=== PATIENT | male | born 1950 | race Caucasian/White ===

== ENCOUNTER → 2022-05-11 15:10 | Outpatient (BNVA) | payer MEDICARE, SELFPAY | PROVIDERS: PCP Family Medicine; Visit Provider Hospitalist | DX: I26.99 Other pulmonary embolism without acute cor pulmonale (principal); J18.9 Pneumonia, unspecified organism; R91.8 Other nonspecific abnormal finding of lung field; R05.9 Cough, unspecified; Z79.01 Long term (current) use of anticoagulants | CPT/HCPCS: 99202 ==

== ENCOUNTER 2022-06-12 14:27 | Outpatient (REF) | payer MEDICARE, SELFPAY ==
--- NOTE | 2022-06-12 | PFT_ITS ---
Forced vital capacity 122, FEV1 134, and FEV1/FVC ratio is 79. YMV07-26 is 149% and MVV 96%. Post bronchodilator therapy, there is no change. Total lung capacity 105%. Residual volume 99%. Diffusion capacity 54%. CONCLUSION: Normal pulmonary function test, and there is no evidence of obstructive or restrictive pulmonary disorder. Diffusion capacity is moderately reduced, and this may be due to non-pulmonary factors for which clinical correlation is recommended. MD MINERVA Newell/MODL / [id number]
[2022-06-12 16:45] LABS: MANUAL DIFF FLAG NO
[2022-06-12 17:46] LABS: Basophils Percent Auto 0.3 % (0-2); Eosinophils Absolute Auto 0.1 X10*3/uL (0.0-0.4); Eosinophils Percent Auto 0.8 % (0-4); Hematocrit 45.2 % (42.0-52.0); Hemoglobin 15.2 g/dl (14.0-18.0); Imm Gran Abs Auto 0.03 X10*3/uL (0.00-0.03); Imm Gran Pct Auto 0.3 % (0.0-0.4); Lymphocytes Absolute Auto 3.1 X10*3/uL (1.2-4.9); Lymphocytes Percent Auto 34.6 % (20-40); Mean Corpuscular HGB Conc 33.6 g/dl (31.0-36.0); Mean Corpuscular Hemoglobin 28.4 pg (27.0-33.0); Mean Corpuscular Volume 84.3 fL (80.0-98.0); Mean Platelet Volume 8.9 fL (9.4-12.4); Monocytes Absolute Auto 0.8 X10*3/uL (0.1-1.2); Monocytes Percent Auto 8.6 % (2-11); Neutrophils Absolute Auto 4.9 x10*3/uL (2.0-8.3); Neutrophils Percent Auto 55.4 % (45-73); Platelet Count 272 X10*3/uL (160-400); Red Blood Count 5.36 X10*6/uL (4.60-5.80); Red Cell Distribution Width 13.3 % (11.0-16.0); White Blood Count 8.8 X10*3/uL (4.8-10.8)
[2022-06-12 18:19] LABS: Anion Gap 15 (12-20); Blood Urea Nitrogen 25 mg/dL (9-16); Calcium 9.6 mg/dL (8.4-10.2); Carbon Dioxide 20 mmol/L (22-29); Chloride 108 mmol/L (96-108); Estimated Glomerular Filt Rate > 60; Glucose Random 85 mg/dL (60-115); Sodium 139 mmol/L (135-145)
[2022-06-12 20:11] LABS: Erythrocyte Sedimentation Rate 1 MM/HR (0-15)
[2022-06-14 12:52] LABS: SARS COV2 IgG NEGATIVE
[2022-06-17 08:32] LABS: Myeloperoxidase Antibody <1.0 AI; Proteinase 3 PR3 Antibodies <1.0 AI
[2022-06-17 17:07] LABS: Anti Nuclear Antibody Screen NEGATIVE (NEGATIVE)
[2022-07-08 16:17] LABS: Asperg fumigatus Precip Abs NEGATIVE (NEGATIVE); Micropoly faeni Abs NEGATIVE (NEGATIVE); Pigeon serum Abs NEGATIVE (NEGATIVE); Saccharo pora viridis Abs NEGATIVE (NEGATIVE); Thermo candidus Abs NEGATIVE (NEGATIVE); Thermoa vulgaris #1 NEGATIVE (NEGATIVE)
== END 2022-06-12 14:28 | disposition home or self-care (01) ==
LOC: HO.RESP 14:27
PROVIDERS: PCP Family Medicine; Visit Provider Hospitalist
DX: J18.9 Pneumonia, unspecified organism (principal); J47.9 Bronchiectasis, uncomplicated; R05.9 Cough, unspecified; R91.8 Other nonspecific abnormal finding of lung field; Z20.822 Contact with and (suspected) exposure to COVID-19
CPT/HCPCS: 36415; 80048; 82785; 85025; 85652; 86003; 86021; 86038; 86039; 86331; 86606; 86609; 86769; 94060; 94727; 94729

== ENCOUNTER 2022-06-13 15:14 | Outpatient (REF) | payer MEDICARE, SELFPAY ==
--- NOTE | ~2022-06-13 | CT_ITS ---
EXAMINATION: CT ANGIOGRAM OF THE CHEST WITH AND WITHOUT CONTRAST (CT PULMONARY ANGIOGRAM FOR PE) CLINICAL INFORMATION: Reason for Exam I26.99 - Other pulmonary embolism without acute cor pulmonale COMPARISON: None TECHNIQUE: Prior to contrast administration, noncontrast localization images were obtained. Subsequently, multidetector volumetric imaging was performed from the thoracic inlet to below the diaphragms following the administration of 75 mL Omnipaque 350 intravenous contrast. No contrast reaction reported Sagittal, coronal, and MIP oblique sagittal reformatted images were obtained on the CT workstation, uploaded to PACS, and reviewed. This CT examination was performed using dose optimization techniques as appropriate, variously including the following: *Automated exposure control *Adjustment of mA and/or kV according to patient size (this includes techniques or standardized protocols for targeted exams where dose is matched to indication/reason for exam; i.e. extremities or head) *Use of iterative reconstruction technique Total exam dose-length product 231 mGy-cm FINDINGS: QUALITY OF STUDY/CONTRAST BOLUS: Satisfactory. PULMONARY ARTERIES: No central or segmental pulmonary emboli. THORACIC AORTA: No aneurysm or dissection. LUNG: There is peripheral scarring or subsegmental atelectasis, focal mild bronchiectasis and cystic change in the right upper lobe. There are clustered small peribronchial nodules or tree-in-bud appearance in the more inferior right upper lobe suggestive of disease. There is a branching tubular structure suggestive of bronchial soft tissue opacification or mucus plugging in the right middle lobe. This measures approximately 0 . 5 x 2 cm axial image 293 series 5. There is linear scarring or subsegmental atelectasis in the left lower lobe. PLEURA: No pleural effusion or pneumothorax. MEDIASTINUM: Normal heart size. Coronary artery calcification. No pericardial effusion. No hilar or mediastinal lymphadenopathy. No evidence of septal bowing or right heart strain. CHEST WALL/AXILLA: No axillary or internal mammary lymphadenopathy. OSSEOUS STRUCTURES: No acute or suspicious osseous abnormality. UPPER ABDOMEN: Multiple liver cysts, largest in the right lobe measuring 5 cm. The stomach is distended and filled with fluid. This may be related to patient having recently eaten. There is a 1 cm cyst in the upper pole of the left kidney. No reflux of contrast into the hepatic veins to suggest elevated right heart pressures. CT/CT angio chest PE protocol IMPRESSION: No evidence of pulmonary embolism. Focal peripheral or subpleural right upper lobe scarring or subsegmental atelectasis, bronchiectasis and cystic change. Evidence of mild airways disease with tree-in-bud nodules in the inferior right upper lobe. Irregular branching or tubular nodule in the right middle lobe probably representing bronchial soft tissue opacity splenic vein measuring 0.5 x [address] follow-up recommended .Mild coronary artery calcification. VTE: negative
[2022-06-13] MEDS: iohexoL 350 MG/ML 100 ML INFUS..BTL IV (16:07)
== END 2022-06-13 15:15 | disposition home or self-care (01) ==
LOC: HO.CT 15:14
PROVIDERS: PCP Family Medicine; Visit Provider Hospitalist
DX: J18.9 Pneumonia, unspecified organism (principal); R91.8 Other nonspecific abnormal finding of lung field; I26.99 Other pulmonary embolism without acute cor pulmonale
CPT/HCPCS: 71275; Q9967

== ENCOUNTER → 2022-06-29 15:43 | Outpatient (BNVA) | payer MEDICARE, SELFPAY | PROVIDERS: PCP Family Medicine; Visit Provider Hospitalist | DX: I26.99 Other pulmonary embolism without acute cor pulmonale (principal); J18.9 Pneumonia, unspecified organism; R91.8 Other nonspecific abnormal finding of lung field; J47.9 Bronchiectasis, uncomplicated; Z79.01 Long term (current) use of anticoagulants | CPT/HCPCS: 99212 ==

== ENCOUNTER → 2022-09-28 15:31 | Outpatient (BNVA) | payer MEDICARE, SELFPAY | PROVIDERS: PCP Family Medicine; Visit Provider Hospitalist | DX: I26.99 Other pulmonary embolism without acute cor pulmonale (principal); J18.9 Pneumonia, unspecified organism; J47.9 Bronchiectasis, uncomplicated; R05.9 Cough, unspecified; R91.8 Other nonspecific abnormal finding of lung field | CPT/HCPCS: 99212 ==

== ENCOUNTER → 2022-12-29 15:33 | Outpatient (BNVA) | payer MEDICARE, SELFPAY | PROVIDERS: PCP Family Medicine; Visit Provider Hospitalist | DX: J18.9 Pneumonia, unspecified organism (principal); J47.9 Bronchiectasis, uncomplicated; R91.8 Other nonspecific abnormal finding of lung field; R91.1 Solitary pulmonary nodule; R05.9 Cough, unspecified; I26.99 Other pulmonary embolism without acute cor pulmonale | CPT/HCPCS: 99212 ==

== ENCOUNTER → 2023-01-03 11:11 | Outpatient (BNVA) | payer MEDICARE, SELFPAY | PROVIDERS: PCP Family Medicine; Visit Provider Hospitalist | DX: Z13.89 Encounter for screening for other disorder (principal) ==

== ENCOUNTER 2023-08-10 16:36 | Outpatient (REF) | payer MEDICARE, SELFPAY ==
--- NOTE | ~2023-08-10 | CT_ITS ---
EXAMINATION: CT CHEST WITHOUT CONTRAST CLINICAL INFORMATION: Follow-up lung nodule. COMPARISON: CTA chest 06/13/2022. TECHNIQUE: Multidetector volumetric CT imaging of the chest was done. Axial MIP volume rendering provided. Sagittal and coronal reformatted images were obtained. This CT examination was performed using dose optimization techniques as appropriate, variously including the following: *Automated exposure control *Adjustment of mA and/or kV according to patient size (this includes techniques or standardized protocols for targeted exams where dose is matched to indication/reason for exam; i.e. extremities or head) *Use of iterative reconstruction technique DLP: 185 mGy-cm FINDINGS: LUNGS: Scarring in the anterolateral right upper lobe is stable. Tubular branching structure in the lateral right middle lobe consistent with mucus impacted airway is stable compared to prior. No new or suspicious enlarging nodule. MEDIASTINUM: No mediastinal adenopathy. CORONARY ARTERY CALCIFICATION: LM, LAD, LCx, RCA calcium PLEURA: There is no pleural effusion. No pleural mass or thickening. AXILLA: No lymphadenopathy. UPPER ABDOMEN: Hepatic cysts. Right upper pole renal cyst. No follow-up imaging is recommended. OSSEOUS STRUCTURES: Degenerative changes in the spine. CT/CT chest wo IV con IMPRESSION: Stable airway mucocele in the lateral middle lobe. Stable right apical pleural-parenchymal scarring. Fleischner guidelines were followed.
== END 2023-08-10 16:37 | disposition home or self-care (01) ==
LOC: HO.CT 16:36
PROVIDERS: Visit Provider Hospitalist
DX: R91.1 Solitary pulmonary nodule (principal)
CPT/HCPCS: 71250

== ENCOUNTER 2023-08-16 15:46 | Outpatient (AMB) | payer MEDICARE, SELFPAY ==
[2023-08-16 15:48] VITALS: PULSE 105; O2SAT 92; BMI 24.4
--- NOTE | 2023-08-16 15:48 | MHC.OFFVIS ---
Intake Vital Signs 08/16/23 15:48 Height 5 ft 5 in Weight 146 lb 9.718 oz BMI 24.4 Pulse 105 H Pulse Source Doppler Pulse Oximetry (%) 92 Oxygen Delivery Method Room Air Intake Visit Reasons: CT Scan Follow Up Allergies No Known Allergies Allergy (Verified 08/16/23 15:51) HPI HPI Comments History of Present Illness Details The patient is a 73-year-old gentleman with very complicated past medical history including lymphoma, colon cancer, prostate cancer skin cancer and now with a recent pulmonary embolism pneumonia. 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 It then transformed to a more aggressive lymphoma any required chemotherapy at [facility] in [place]. He tolerated a very aggressive cocktail on chemotherapy any did well. Unfortunately he had increased inguinal lymph node that was biopsy in suggest that he was some so residual lymphoma. I which point he was started on rituximab. He did have any significant improvement with rituximab in therefore his chemotherapy was discontinued. He still follows closely with Oncology. After that the patient was diagnosed colon cancer requiring resection and being monitored closely for his prostate and also some basal cell carcinoma of the skin. Apparently the patient was in usual state health when he fell and injured his chest area. Started complaining of some left-sided chest pain quickly after the fall and then migrated to the right side. He noticed increased shortness of breath. His neighbor was concerned and therefore the call the ambulance for him he was taken to [facility] for further evaluation. There he had a CT scan of the chest PE protocol which I reviewed with him demonstrating multiple pulmonary emboli including the right mainstem artery, right upper lobe left upper lobe and right lower lobe segments. No evidence of any heart strain that could be appreciated. although the CT scan also demonstrated airspace disease with areas of consolidations and also ground-glass opacities. Based on the reported sure this is in the same distribution to suggest that these are pulmonary infarcts. The patient was placed on Eliquis. He was also treated for sepsis and given antibiotics for the possible pneumonia. She was discharged around January 2022. For the last few months he continues to be short of breath. Explained to the patient that the clots were still present and slowly his body reason down further. He is not using oxygen and his ox pulse ox is 98%. The patient has been now more than 3 months from his episode of pulmonary emboli so therefore the plasma is begun. Will go ahead and perform a repeat CT scan to address the pulmonary emboli and also the parenchymal involvement. He does complaint of a hacky cough. He has been using Mucinex. Will try some Tessalon Perles. 07/03/2022 the patient is here for a pulmonary follow-up visit. Overall he is feeling a little better. The cough is better. He never use the Tessalon Perles because of concerns of adverse effects. He continues on the Eliquis. He did have a repeat CTA demonstrating resolution of the pulmonary emboli which is reassuring. It also demonstrated improvement of the basilar airspace disease. He still has areas of tree in bud in addition to bronchiectatic changes. Also appears to have a tubular opacification of an airway. Is not clear if he had this previously. There appears to be some component of airway disease. But at this point he is relatively stable without significant symptoms. Need to consider smoldering infection specially after using Rituxan which could potentially result in immunodeficiencies. Will request CT scans from [facility] in addition to [facility] in order to compare the airspace disease. We also did review his blood work which was reassuring without any evidence of any vasculitis or connective tissue diseases to explain his findings. The patient had negative COVID antibodies to suggest that this was not related to COVID. Patient also had been tested negative for COVID during the time of the pulmonary emboli in the airspace disease. The patient also underwent pulmonary function studies demonstrating no evidence of any obstructive nor restrictive ventilatory defects. However, patient did have a moderate tonight to severe isolated diffusion impairment. Therefore, need to consider underlying pulmonary vascular conditions Especially with his recent thromboembolic disease. Will continue to monitor his progress. 09/28/2022 the patient is here for a pulmonary follow-up visit. Overall he continues to do well. Denies any significant shortness of breath with activity. Mild in severity. He does have a cough. Typically is hard to expectorate. He uses guaifenesin a regular basis. This is partially helpful. the patient does have findings of bronchiectasis on previous CT scans. He has also had treating budding. We did review his CT scan from [address] scan from the spring and a CT scan from 2019. on his most recent CT scan he does have some residual scarring that was left over after having the significant pulmonary infarcts. No evidence of any blood clots on the CT scan in the patient did have what appeared to be elongated density in the right middle lobe area which appears to be somewhat of endobronchial process. We did look back to the CT scan the had initially diagnosed in him with the pulmonary emboli back in January which demonstrated the area but possibly little bit small and with. And we did look at the CAT scanning and from 2019 demonstrating that that density was not there. We talked about the importance of chest physical therapy. The patient does have bronchiectasis so therefore prior pride him with a nebulizer and provide with hypertonic saline and Acapella valve for chest PT and bronchopulmonary hygiene. I am hopeful that we can clear this area. In view of the interval increase in the nodular density the patient should have a repeat CT scan. Will request that during his next visit. The patient also is concerned about his cardiac status. He did have extensive pulmonary emboli with evidence of cardiac strain on the CT scan. Therefore will request an echocardiogram to assess his RV function. in regards of his anticoagulation he tolerates the Eliquis very well. No adverse effects. based on unprovoked event the patient should continue lifelong anticoagulation. ultimately if he decides not to continue with lifelong anticoagulation then I will recommend monitoring his D-dimer once he stops the therapy. However, with this history of lung cancer in his very severe thrombotic event I would believe that continuing the therapy would be the best option specially if he does not have any significant adverse effects. 12/29/2022 the patient is here for a pulmonary follow-up visit. The patient overall is doing well. He does have his nebulizer and Acapella valve although he has not been able to start using because he does not use it. Will make sure he has a nursing visit available in order for him to be instruction how to use it effectively. In the meantime the patient feels better overall. We did review his last CT scan of the chest from June 2022 demonstrating the abnormal nodular density. He did not have that in the past. Therefore will go ahead and repeat the CT scan in June of 2023 to make sure has not progressed in size. He does continue with the Eliquis. The Eliquis he is tolerating without any minor or major side effects. Therefore will continue it for now. He did have an unprovoked clot in does have a history of cancer so therefore lifelong anticoagulation we best. At some point we can also consider decreasing the medication to the prophylactic dose. Will discuss that further during the next visit. 08/16/2023 the patient is here for a pulmonary follow-up visit. Overall the patient has been doing well from a respiratory status. Denies any significant shortness of breath or chest pains or cough. Denies any hemoptysis. He has been tolerating the Eliquis 5 mg twice a day. The patient did have a repeat CT scan of the chest which was personally by me. I also reviewed with him the CT scan from 2018 in 2022. demonstrating significant improvement of the masslike densities that he had both in the right upper lobe and also the bilateral lung zones. He is left with remnants of scarring. He still has pulmonary nodules. Also has the mucocele in the right middle lobe area. This appears to be not changed. Overall his CT scan is reassuring. We again talked about considering a lower dose Eliquis now that he has been treated for his condition. Although he rather just continue taking the 5 mg twice a day since he is not having any adverse effects. Will continue discussing the topic. At this point with the improvement in his imaging studies we will hold off on the additional CT scans at this time. Will follow-up in 6 months in the meantime the patient does not have any running water. He is hopeful that he can get the water fixed in the coming weeks. Once he does he is going to start using his nebulizer again with hypertonic saline along with the Acapella valve for chest physical therapy. This will be very important for him to do in order for mucus clearing specially with the tree-in-bud changes the mucocele changes along with just healthy bronchopulmonary hygiene. The patient follow-up in 6 months and will continue to reassess his progress. [facility] Medical History (Updated 08/16/23 @ 22:39 by Keny Irizarry MD) Pulmonary nodule Bronchiectasis Colon cancer Prostate CA Pneumonia Social History Patient Tobacco Use Status: Former Tobacco user Tobacco use type: Cigarette Years Smoked: 25 Years Review of Systems Const Denies fever(s), Denies night sweats and Denies weight loss Eyes Reports no additional complaints ENT Denies change in voice Card Denies chest pain and Denies dyspnea on exertion Resp Reports cough, Denies dyspnea on exertion and Denies wheezing GI Reports no additional complaints Musc Reports no additional complaints Skin/Breast Denies rash Neuro Reports no additional complaints Aller/Immun Denies wheezing Physical Exam Vital Signs: Last Vital Signs Pulse 105 H 08/16/23 15:48 Pulse Ox 92 08/16/23 15:48 Oxygen Delivery Method Room Air 08/16/23 15:48 BMI result Body Mass Index 24.4 Const General: comfortable HEENT Head: Yes normal to inspection Eyes General: appearance normal, both eyes and all related structures Neck Neck: Yes supple Chest Chest palpation & inspection: normal inspection of the chest Resp Effort & Inspection: normal respiratory effort and able to speak in complete sentences Auscultation: clear to auscultation bilaterally Cardio Rate: regular rate Rhythm: regular rhythm Heart sounds: S1 normal heart sound present and S2 normal heart sound present Skin Rashes: rashes noted (likely insect bites on his right upper back area.) Extrem General: Yes no clubbing, cyanosis or edema Assessment & Plan Assessment & Plan (1) Pneumonitis: Comment: resolved Code(s): J18.9 - Pneumonia, unspecified organism (2) Lung mass: Comment: Resolved on repeat CT scan could have been related to a pulmonary infarct, now with residual scarring at the sites Code(s): R91.8 - Other nonspecific abnormal finding of lung field (3) Pulmonary emboli: Comment: unprovoked, life long antigoagulation Code(s): I26.99 - Other pulmonary embolism without acute cor pulmonale Qualifiers: Pulmonary embolism type: single subsegmental (without acute cor pulmonale) Qualified Code(s): I26.93 - Single subsegmental pulmonary embolism without acute cor pulmonale (4) Cough: Comment: better Code(s): R05.9 - Cough, unspecified Qualifiers: Cough type: chronic Qualified Code(s): R05.3 - Chronic cough (5) Bronchiectasis: Code(s): J47.9 - Bronchiectasis, uncomplicated Qualifiers: Bronchiectasis type: uncomplicated Qualified Code(s): J47.9 - Bronchiectasis, uncomplicated (6) Pulmonary nodule: Code(s): R91.1 - Solitary pulmonary nodule Plan continue Eliquis 5 mg twice a day. the patient had an unprovoked event with multiple pulmonary emboli. Patient would benefit from lifelong anticoagulation due to his likely high risk for recurrent episodes. Consider decreasing to 2.5mg BID nebulizer with the hypertonic saline and acapella valve for CPT, needs additional instructions follow-up in 6 months Coding Level of Care Code Est Pt Level 4 (57509) Diagnoses Pneumonitis J18.9 Lung mass R91.8 Single subsegmental pulmonary embolism without acute cor pulmonale I26.93 Pulmonary embolism type: single subsegmental (without acute cor pulmonale) Chronic cough R05.3 Cough type: chronic Bronchiectasis without complication J47.9 Bronchiectasis type: uncomplicated Pulmonary nodule R91.1 Time Spent (min) 20
== END 2023-08-16 16:22 | disposition home or self-care (01) ==
PROVIDERS: PCP Family Medicine; Visit Provider Hospitalist
DX: J18.9 Pneumonia, unspecified organism (principal); R91.8 Other nonspecific abnormal finding of lung field; I26.93 Single subsegmental thrombotic pulmonary embolism without acute cor pulmonale; R05.3 Chronic cough; J47.9 Bronchiectasis, uncomplicated; R91.1 Solitary pulmonary nodule
CPT/HCPCS: 99214

== ENCOUNTER → 2023-08-16 15:46 | Outpatient (BNVA) | payer MEDICARE, SELFPAY | PROVIDERS: PCP Family Medicine; Visit Provider Hospitalist | DX: J18.9 Pneumonia, unspecified organism (principal); I26.93 Single subsegmental thrombotic pulmonary embolism without acute cor pulmonale; J47.9 Bronchiectasis, uncomplicated; R05.3 Chronic cough; R91.1 Solitary pulmonary nodule; R91.8 Other nonspecific abnormal finding of lung field | CPT/HCPCS: 99212 ==

== ENCOUNTER 2024-05-29 14:55 | Outpatient (REF) | payer MEDICARE, SELFPAY ==
--- NOTE | ~2024-05-29 | XR_ITS ---
EXAMINATION: XR CHEST CLINICAL INFORMATION: Pneumonia, unspecified organism COMPARISON: Chest CT July 2023. TECHNIQUE: 2 views of the chest were obtained. Slight rotation to the right. FINDINGS: No new dominant airspace consolidation. Linear scarring change observed in the peripheral right upper lobe, appearing similar. No evidence for pneumothorax. Hilar regions and pulmonary vascularity appear unremarkable. There is small blunting in the right costophrenic angle which may reflect a minimal effusion or pleural reaction. Thoracic spondylitic changes observed. XR/XR chest 2V IMPRESSION: No dominant airspace infiltrates. Linear scarring of the right upper lobe, appearing similar to previous evaluation. Small blunting in the right costophrenic angle likely collecting a minimal effusion or pleural reaction.
== END 2024-05-29 14:56 | disposition home or self-care (01) ==
LOC: HO.XRAY 14:55
PROVIDERS: PCP Student in an Organized Health Care Education/Training Program; Visit Provider Hospitalist
DX: J18.9 Pneumonia, unspecified organism (principal)
CPT/HCPCS: 71046; 99212

== ENCOUNTER 2024-05-29 14:55 | Outpatient (AMB) | payer MEDICARE, SELFPAY ==
[2024-05-29 14:56] VITALS: BP 122/58; PULSE 105; O2SAT 95; BMI 23.8
--- NOTE | 2024-05-29 14:56 | A.OFFVIS_ITS ---
Vital Signs 05/29/24 14:56 Height 5 ft 5 in Weight 143 lb BMI 23.8 BP 122/58 L Blood Pressure Location Rt brachial Position Sitting Pulse 105 H Pulse Source Doppler Pulse Oximetry (%) 95 Oxygen Delivery Method Room Air Intake Visit Reasons: pulmonary embolism Allergies No Known Allergies Allergy (Verified 05/29/24 15:02) HPI Comments Details: The patient is a 74-year-old gentleman with very complicated past medical history including lymphoma, colon cancer, prostate cancer skin cancer and now with a recent pulmonary embolism pneumonia. 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 It then transformed to a more aggressive lymphoma any required chemotherapy at [facility] in [place]. He tolerated a very aggressive cocktail on chemotherapy any did well. Unfortunately he had increased inguinal lymph node that was biopsy in suggest that he was some so residual lymphoma. I which point he was started on rituximab. He did have any significant improvement with rituximab in therefore his chemotherapy was discontinued. He still follows cl osely with Oncology. After that the patient was diagnosed colon cancer requiring resection and being monitored closely for his prostate and also some basal cell carcinoma of the skin. Apparently the patient was in usual state health when he fell and injured his chest area. Started complaining of some left-sided chest pain quickly after the fall and then migrated to the right side. He noticed increased shortness of breath. His neighbor was concerned and therefore the call the ambulance for him he was taken to [facility] for further evaluation. There he had a CT scan of the chest PE protocol which I reviewed with him demonstrating multiple pulmonary emboli including the right mainstem artery, right upper lobe left upper lobe and right lower lobe segments. No evidence of any heart strain that could be appreciated. although the CT scan also demonstrated airspace disease with areas of consolidations and also ground-glass opacities. Based on the reported sure this is in the same distribution to suggest that these are pulmonary infarcts. The patient was placed on Eliquis. He was also treated for sepsis and given antibiotics for the possible pneumonia. She was discharged around January 2022. For the last few months he continues to be short of breath. Explained to the patient that the clots were still present and slowly his body reason down further. He is not us ing oxygen and his ox pulse ox is 98%. The patient has been now more than 3 months from his episode of pulmonary emboli so therefore the plasma is begun. Will go ahead and perform a repeat CT scan to address the pulmonary emboli and also the parenchymal involvement. He does complaint of a hacky cough. He has been using Mucinex. Will try some Tessalon Perles. 07/03/2022 the patient is here for a pulmonary follow-up visit. Overall he is feeling a little better. The cough is better. He never use the Tessalon Perles because of concerns of adverse effects. He continues on the Eliquis. He did have a repeat CTA demonstrating resolution of the pulmonary emboli which is reassuring. It also demonstrated improvement of the basilar airspace disease. He still has areas of tree in bud in addition to bronchiectatic changes. Also appears to have a tubular opacification of an airway. Is not clear if he had this previously. There appears to be some component of airway disease. But at this point he is relatively stable without significant symptoms. Need to consider smoldering infection specially after using Rituxan which could potentially result in immunodeficiencies. Will request CT scans from [facility] in addition to [facility] in order to compare the airspace disease. We also did review his blood work which was reassuring without any evidence of any vasculitis or connective tissue diseases to explain his findings. The patient had negative COVID antibodies to suggest that this was not related to COVID. Patient also had been tested negative for COVID during the time of the pulmonary emboli in the airspace disease. The patient also underwent pulmonary function studies demonstrating no evidence of any obstructive nor restrictive ventilatory defects. However, patient did have a moderate tonight to severe isolated diffusion impairment. Therefore, need to consider underlying pulmonary vascular conditions Especially with his recent thromboembolic disease. Will continue to monitor his progress. 09/28/2022 the patient is here for a pulmonary follow-up visit. Overall he continues to do well. Denies any significant shortness of breath with activity. Mild in severity. He does have a cough. Typically is hard to expectorate. He uses guaifenesin a regular basis. This is partially helpful. the patient does have findings of bronchiectasis on previous CT scans. He has also had treating budding. We did review his CT scan from [address] scan from the spring and a CT scan from 2019. on his most recent CT scan he does have some residual scarring that was left over after having the significant pulmonary infarcts. No evidence of any blood clots on the CT scan in the patient did have what appeared to be elongated density in the right middle lobe area which appears to be somewhat of endobronchial process. We did look back to the CT scan the had initially diagnosed in him with the pulmonary emboli back in January which demonstrated the area but possibly little bit small and with. And we did look at the CAT scanning and from 2019 demonstrating that that density was not there. We talked about the importance of chest physical therapy. The patient does have bronchiectasis so therefore prior pride him with a nebulizer and provide with hypertonic saline and Acapella valve for chest PT and bronchopulmonary hygiene. I am hopeful that we can clear this area. In view of the interval increase in the nodular density the patient should have a repeat CT scan. Will request that during his next visit. The patient also is concerned about his cardiac status. He did have extensive pulmonary emboli with evidence of cardiac strain on the CT scan. Therefore will request an echocardiogram to assess his RV function. in regards of his anticoagulation he tolerates the Eliquis very well. No adverse effects. based on unprovoked event the patient should continue lifelong anticoagulation. ultimately if he decides not to continue with lifelong anticoagulation then I will recommend monitoring his D- dimer once he stops the therapy. However, with this history of lung cancer in his very severe thrombotic event I would believe that continuing the therapy would be the best option specially if he does not have any significant adverse effects. 12/29/2022 the patient is here for a pulmonary follow-up visit. The patient overall is doing well. He does have his nebulizer and Acapella valve although he has not been able to start using because he does not use it. Will make sure he has a nursing visit available in order for him to be instruction how to use it effectively. In the meantime the patient feels better overall. We did review his last CT scan of the chest from June 2022 demonstrating the abnormal nodular density. He did not have that in the past. Therefore will go ahead and repeat the CT scan in June of 2023 to make sure has not progressed in size. He does continue with the Eliquis. The Eliquis he is tolerating without any minor or major side effects. Therefore will continue it for now. He did have an unprovoked clot in does have a history of cancer so therefore lifelong anticoagulation we best. At some point we can also consider decreasing the medication to the prophylactic dose. Will discuss that further during the next visit. 08/16/2023 the patient is here for a pulmonary follow-up visit. Overall the patient has been doing well from a respiratory status. Denies any significant shortness of breath or chest pains or cough. Denies any hemoptysis. He has been tolerating the Eliquis 5 mg twice a day. The patient did have a repeat CT scan of the chest which was personally by me. I also reviewed with him the CT scan from 2018 in 2022. demonstrating significant improvement of the masslike densities that he had both in the right upper lobe and also the bilateral lung zones. He is left with remnants of scarring. He still has pulmonary nodules. Also has the mucocele in the right middle lobe area. This appears to be not changed. Overall his CT scan is reassuring. We again talked about considering a lower dose Eliquis now that he has been treated for his condition. Although he rather just continue taking the 5 mg twice a day since he is not having any adverse effects. Will continue discussing the topic. At this point with the improvement in his imaging studies we will hold off on the additional CT scans at this time. Will follow-up in 6 months in the meantime the patient does not have any running water. He is hopeful that he can get the water fixed in the coming weeks. Once he does he is going to start using his nebulizer again with hypertonic saline along with the Acapella valve for chest physical therapy. This will be very important for him to do in order for mucus clearing specially with the tree-in-bud changes the mucocele changes along with just healthy bronchopulmonary hygiene. The patient follow-up in 6 months and will continue to reassess his progress. 05/29/2024 the patient is here for a pulmonary follow-up visit. The patient overall doing well from a respiratory status. He denies any shortness of breath or cough or chest pain. He denies any hemoptysis. He continues on the Eliquis 5 mg p.o. b.i.d.. He denies any minor major bleeding with the Eliquis. He is pretty happy with that dose. Although he knows that at this point he could sick way down to the lower dose of prophylactic dose of Eliquis 2.5 twice a day. The patient has last CT scan was back in 08/01/2023 which we personally reviewed together. He does have stable nodular densities. No evidence of any worsening disease. Therefore, the patient does not need any serial imaging studies from a CAT scan standpoint. However, on exam he does have some crackles at the left base. The scarring that we can appreciate on his CT scan is primarily on the right base. So therefore he is going to undergo a chest x-ray. His any worsening of disease we can consider additional imaging studies in the future. The patient is also working with a dentist. The patient needs to have a lot of dental work done. For now he is able to stop the Eliquis 3 days before and he can stop the Eliquis 2 days after the procedure. No bridge therapy warranted. The patient is also followed closely with Hematology Oncology. This is a right now he is stable. They will continue to monitor him closely [facility] Medical History (Updated 08/16/23 @ 22:39 by Keny Irizarry MD) Pulmonary nodule Bronchiectasis Colon cancer Prostate CA Pneumonia Social History Patient Tobacco Use Status: Former Tobacco user Tobacco use type: Cigarette Years Smoked: 25 Years Review of Systems Const Denies fever(s), Denies night sweats and Denies weight loss Eyes Reports no additional complaints ENT Denies change in voice Card Denies chest pain and Denies dyspnea on exertion Resp Reports cough, Denies dyspnea on exertion and Denies wheezing GI Reports no additional complaints Musc Reports no additional complaints Skin/Breast Denies rash Neuro Reports no additional complaints Aller/Immun Denies wheezing Physical Exam Vital Signs: Last Vital Signs Pulse 105 H 05/29/24 14:56 BP 122/58 L 05/29/24 14:56 Pulse Ox 95 05/29/24 14:56 Oxygen Delivery Method Room Air 05/29/24 14:56 BMI result Body Mass Index 23.8 Const General: comfortable HEENT Head: Yes normal to inspection Eyes General: appearance normal, both eyes and all related structures Neck Neck: Yes supple Chest Chest palpation & inspection: normal inspection of the chest Resp Effort & Inspection: normal respiratory effort and able to speak in complete sentences Auscultation: clear to auscultation bilaterally Cardio Rate: regular rate Rhythm: regular rhythm Heart sounds: S1 normal heart sound present and S2 normal heart sound present Skin Rashes: rashes noted (likely insect bites on his right upper back area.) Extrem General: Yes no clubbing, cyanosis or edema Assessment & Plan Assessment & Plan (1) Pneumonitis: Comment: resolved Code(s): J18.9 - Pneumonia, unspecified organism Category: Medical (2) Lung mass: Comment: Resolved on repeat CT scan could have been related to a pulmonary infarct, now with residual scarring at the sites Code(s): R91.8 - Other nonspecific abnormal finding of lung field Category: Medical (3) Pulmonary emboli: Comment: unprovoked, life long antigoagulation Code(s): I26.99 - Other pulmonary embolism without acute cor pulmonale Category: Medical Qualifiers: Pulmonary embolism type: single subsegmental (without acute cor p ulmonale) Qualified Code(s): I26.93 - Single subsegmental pulmonary embolism without acute cor pulmonale (4) Cough: Comment: better Code(s): R05.9 - Cough, unspecified Category: Medical Qualifiers: Cough type: chronic Qualified Code(s): R05.3 - Chronic cough (5) Bronchiectasis: Code(s): J47.9 - Bronchiectasis, uncomplicated Category: Medical Qualifiers: Bronchiectasis type: uncomplicated Qualified Code(s): J47.9 - Bronchiectasis, uncomplicated (6) Pulmonary nodule: Code(s): R91.1 - Solitary pulmonary nodule Category: Medical Plan continue Eliquis 5 mg twice a day. the patient had an unprovoked event with multiple pulmonary emboli. Patient would benefit from lifelong anticoagulation due to his likely high risk for recurrent episodes. Consider decreasing to 2.5mg BID CXR follow-up in 6-8 months Orders: Orders XR chest 2V Today J18.9 - Pneumonia, unspecified organism Coding Level of Care Code Est Pt Level 4 (54674) Diagnoses Pneumonitis J18.9 Lung mass R91.8 Single subsegmental pulmonary embolism without acute cor pulmonale I26.93 Pulmonary embolism type: single subsegmental (without acute cor pulmonale) Chronic cough R05.3 Cough type: chronic Bronchiectasis without complication J47.9 Bronchiectasis type: uncomplicated Pulmonary nodule R91.1 Time Spent (min) 18
== END 2024-05-29 15:24 | disposition home or self-care (01) ==
PROVIDERS: PCP Student in an Organized Health Care Education/Training Program; Visit Provider Hospitalist
DX: J18.9 Pneumonia, unspecified organism (principal); R91.8 Other nonspecific abnormal finding of lung field; I26.93 Single subsegmental thrombotic pulmonary embolism without acute cor pulmonale; R05.3 Chronic cough; J47.9 Bronchiectasis, uncomplicated; R91.1 Solitary pulmonary nodule
CPT/HCPCS: 99214

== ENCOUNTER 2024-07-13 19:58 | Inpatient (IN) | payer MEDICARE, SELFPAY ==
--- NOTE | ~2024-07-13 | CT_ITS ---
EXAMINATION: CT CHEST WITHOUT CONTRAST CLINICAL INFORMATION: Chest pain status-post fall. COMPARISON: Prior chest CT examinations, most recently 08/10/2023. TECHNIQUE: Multidetector volumetric CT imaging of the chest was done. Axial MIP volume rendering provided. Sagittal and coronal reformatted images were obtained. This CT examination was performed using dose optimization techniques as appropriate, variously including the following: *Automated exposure control *Adjustment of mA and/or kV according to patient size (this includes techniques or standardized protocols for targeted exams where dose is matched to indication/reason for exam; i.e. 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 There is plate-like scar/subsegmental atelectasis at the left base. LUNGS: There are multiple bilateral scattered benign, calcified granulomas. A few scattered 1-2 noncalcified nodules are seen within the right upper lobe laterally, best appreciated on the MIP sequence. Within the apicoposterior segment of the left upper lobe (26:92), a 3 mm noncalcified nodule is seen. These nodules are relatively stable from 06/13/2022, and they are considered benign. No new nodule, mass, infiltrate or groundglass opacity is seen. There is no generalized increase in peripheral interlobular septal markings. There is bibasilar linear scar/subsegmental atelectasis, without associated focal airway obstruction. There is further right apical pleural-parenchymal scarring, without focal airway obstruction. No generalized small airway thickening is seen. The central airways appear patent. MEDIASTINUM: The thyroid is unremarkable. There is no thoracic aortic aneurysm. There are mild atherosclerotic calcifications of the thoracic aorta. No mediastinal or hilar lymphadenopathy is seen. CORONARY ARTERY CALCIFICATION: Moderately severe. PLEURA: There is no pleural effusion. No pleural mass or thickening. AXILLA: No lymphadenopathy. There is asymmetric very mild left gynecomastia. UPPER ABDOMEN: There are multiple low-attenuation hepatic cysts, some too small to fully characterize with CT. Some of these within the right upper lobe appear lobulated and septated. There are incompletely covered bilateral renal cysts. The adrenal glands are unremarkable. OSSEOUS STRUCTURES: There is multi-level cervicothoracic spondylosis. No acute or aggressive osseous finding is noted. CT/CT chest wo IV con IMPRESSION: 1. There are benign, stable small noncalcified and calcified lung nodules, as detailed. Some of these within the right upper lobe show tree-in-bud arrangements, suggesting small airways or small vessels disease secondary to an infectious or inflammatory process. Please correlate clinically. 2. No new nodule, mass, infiltrate or groundglass opacity is seen. 3. There are scattered foci of scarring/subsegmental atelectasis, without associated focal airway obstruction. 4. No thoracic lymphadenopathy is seen. 5. There is moderately severe coronary artery atherosclerotic calcification. 6. There is multi-level cervicothoracic spondylosis Fleischner guidelines were followed. Electronically signed by: Jake Naylor MD 07/13/2024 10:53 PM EDT
--- NOTE | ~2024-07-13 | CT_ITS ---
EXAMINATION: CT CERVICAL SPINE WITHOUT CONTRAST CLINICAL INFORMATION: Pain status-post fall. COMPARISON: None available. TECHNIQUE: Without the addition of intravenous contrast, multiple contiguous multidetector transaxial sections are obtained through the cervical spine. Multiplanar reformatted images are submitted. This CT examination was performed using dose optimization techniques as appropriate, variously including the following: *Automated exposure control *Adjustment of mA and/or kV according to patient size (this includes techniques or standardized protocols for targeted exams where dose is matched to indication/reason for exam; i.e. extremities or head) *Use of iterative reconstruction technique DLP: 1480 mGy-cm FINDINGS: Vertebral body heights are normal. At C2-3, there is moderate disc space narrowing and a 2 mm anterolisthesis. There is marked degenerative disc disease extending from C3-4 through C6-7. At C7-T1, there is mild disc space narrowing and a 2 mm anterolisthesis. There is moderately severe disc space narrowing at T1-2 and T2-3, with a grade 1 anterolisthesis. There is moderate disc space narrowing at T3-4. No acute fracture or spondylolisthesis is seen. There is multi-level endplate and facet arthropathy. The dens is intact. No prevertebral soft tissue swelling is seen. The bilateral lung apices appear clear. There is mild right apical pleural and parenchymal scarring. CT/CT cervical spine wo IV con IMPRESSION: 1. No acute fracture or spondylolisthesis is seen. 2. There is multi-level cervical and upper thoracic degenerative disc disease, with endplate and facet arthropathy. Degenerative disc disease is most pronounced extending from C3-4 through C6-7, where it is severe. Fleischner guidelines were followed. Electronically signed by: Jake Naylor MD 07/13/2024 10:37 PM EDT Workstation: [id number]
--- NOTE | ~2024-07-13 | CT_ITS ---
EXAMINATION: CT HEAD WITHOUT CONTRAST CLINICAL INFORMATION: Pain status-post fall. COMPARISON: None available. TECHNIQUE: Contiguous axial imaging was performed from the skull base to vertex without intravenous administration of contrast. This CT examination was performed using dose optimization techniques as appropriate, variously including the following: *Automated exposure control *Adjustment of mA and/or kV according to patient size (this includes techniques or standardized protocols for targeted exams where dose is matched to indication/reason for exam; i.e. extremities or head) *Use of iterative reconstruction technique DLP: 800 mGy-cm FINDINGS: There is no acute intracranial hemorrhage or evidence of territorial infarction. No abnormal mass effect or midline shift is seen. Barone to white matter differentiation is well preserved. There is no abnormal attenuation within the brain parenchyma. The ventricles and sulci show proportional prominence, commensurate with advanced age. There is some asymmetry of the ventricles, which is likely congenital in etiology. No extra-axial fluid collections are identified. The calvarium and scalp soft tissues are normal. The middle ear cavity and mastoid air cells are clear. There is mild anterior ethmoid sinusitis. CT/CT head/brain wo IV con IMPRESSION: 1. No acute intracranial pathology. 2. There is mild ethmoid sinusitis. Electronically signed by: Jake Naylor MD 07/13/2024 10:32 PM EDT
--- NOTE | 2024-07-13 20:36 | ECG_ITS ---
Test Reason : FALL Blood Pressure : / mmHG Vent. Rate : 097 BPM Atrial Rate : 097 BPM P-R Int : 140 ms QRS Dur : 120 ms QT Int : 380 ms P-R-T Axes : 071 -75 038 degrees QTc Int : 482 ms Sinus rhythm with Premature atrial complexes Left axis deviation Right bundle branch block Abnormal ECG No previous ECGs available Referred By: Emely Wright Electronically Signed By:MISHA SHEPHERD
[2024-07-13 20:40] VITALS: BP 154/84; PULSE 112; RESP 20; TEMP 36.6; O2SAT 100; BMI 19.7
--- NOTE | 2024-07-13 20:45 | ED_ITS ---
HPI - General Adult General Chief complaint: Fall Stated complaint: ?FALL, FOUND FACE DOWN, L SIDE PAIN Time Seen by Provider: 07/13/24 20:44 Source: patient and EMS Mode of arrival: EMS Limitations: no limitations History of Present Illness ED Provider: Emely Wright PA-C HPI narrative: Patient is a 74 year old assigned male at with a history of colon cancer and prostate cancer presenting to the emergency department today with left sided rib pain after a fall and weakness. Patient states that on 07/11/2024 he had a fall and landed on his left side. Patient states that he didn't hit his head or have any loss of consciousness. Patient states that he got into his bed Sunday night and struggled to get out of it on Sunday so he laid there until he was found today. Patient states that he feels weak. Patient denies any dizziness, lightheadedness, abdominal pain, nausea, vomiting, fever, chills, blurry vision, double vision, loss of vision, chest pain, difficulty breathing, shortness of breath, back pain, night sweats, pain with urination, increased urinary frequency, increased urinary urgency, blood in his urine or stool, syncope or a near syncopal episode, bowel incontinence, bladder incontinence, or any other complaints at this time. Relieving factors: none Exacerbating factors: none Associated symptoms: weakness Treatments prior to arrival: none Related Data Home Medications ?Medication ?Instructions ?Recorded ?Confirmed apixaban 5 mg tablet (Eliquis) 5 mg PO Q12H 05/11/22 guaifenesin 600 mg tablet, 0 mg PO 05/11/22 extended release 12 hr (Mucus Relief ER) tadalafil 5 mg tablet 5 mg PO DAILY 05/11/22 Previous Rx's ?Medication ?Instructions ?Recorded sodium chloride 3 % for 4 ml inhalation BID 30 days #240 mL 09/28/22 nebulization sodium chloride 7 % for 4 ml inhalation BID 30 days #240 mL 10/13/22 nebulization Allergies Allergy/AdvReac Type Severity Reaction Status Date / Time No Known Allergies Allergy Verified 07/13/24 20:45 Review of Systems 2 Constitutional: Constitutional: Reports no additional constitutional complaints, Denies chills, Denies fever(s) and Denies night sweats Eyes: Eyes: Reports no additional eye complaints, Denies blurry vision, Denies change in vision, Denies diplopia, Denies eye discharge, Denies loss of vision and Denies eye pain ENT: Denies dizziness Cardiovascular: Cardiovascular: Reports no additional cardiovascular complaints, Denies chest pain, Denies lightheadedness, Denies Loss of Consciousness and Denies dyspnea Respiratory: Respiratory: Reports no additional respiratory complaints, Reports cough and Denies dyspnea Gastrointestinal: Gastrointestinal: Reports no additional gastrointestinal complaints, Denies abdominal pain, Denies melena, Denies hematochezia, Denies change in bowel habits and Denies change in stool character Genitourinary: Genitourinary: Reports no additional male genitourinary complaints, Denies hematuria, Denies oliguria, Denies difficulty urinating, Denies dysuria, Denies urinary frequency, Denies urinary hesitancy, Denies urinary incontinence and Denies urinary urgency Musculoskeletal: Musculoskeletal: Reports no additional musculoskeletal complaints, Denies numbness and Denies tingling Comments: left rib pain Neurologic: Denies dizziness, Denies loss of vision, Denies numbness and Denies tingling Psychiatric: Psychiatric: Reports no additional psychiatric complaints Endocrine: Endocrine: Reports no additional endocrine complaints Hematologic/Lymphatic: Hematologic/Lymphatic: Reports no additional hematologic/lymphatic complaints Allergic/Immunologic: Allergic/Immunologic: Reports no additional allergic/immunologic complaints PMF Past Medical History Attestation statement: The following information was validated with the patient. Source: old records reviewed and nursing notes reviewed Medical History Pulmonary nodule Bronchiectasis Colon cancer Prostate CA Pneumonia Social History Social History Patient Tobacco Use Status: Former Tobacco user Tobacco use type: Cigarette Years Smoked: 25 Years Smoked in Last 30 Days: No Use of substances other than those prescribed or required for medical reasons: No Advance Directives: No Advance Directives Information Provided: Yes Do you have a plan to hurt others: No Plan Physical Exam ED Vital Signs: Vital Signs - 24 hr 07/13/24 20:40 07/13/24 23:46 Temperature 98 F 98.1 F Pulse Rate 112 H 96 Respiratory Rate 20 Blood Pressure 154/84 H 143/82 H Pulse Oximetry 100 94 Oxygen Delivery Method Room Air Room Air BMI result Body Mass Index 19.7 Const General: cooperative, no acute distress, alert and awake Nutritional Appearance: well nourished Orientation/consciousness: patient oriented x3 Limitations: no limitations HENMT Head: Yes normal to inspection and Yes atraumatic Ears: hearing grossly normal bilaterally and external ears normal General nose exam: Normal external nose present, no nasal discharge noted and no epistaxis Face and sinus: Yes normal facial exam, No abrasion and No laceration Mouth: Normal oral and palatal mucosa present, no drooling and no muffled voice Eyes General: appearance normal, both eyes and all related structures Periorbital: periorbital findings normal Eyelids: Yes eyelids normal Conjunctivae: conjunctivae normal Pupils: Equal, round and reactive pupils present EOM: EOMs intact bilaterally Neck Neck: Yes normal visual inspection, Yes full ROM and Yes no lymphadenopathy Chest Chest palpation & inspection: normal inspection of the chest Resp Effort & Inspection: normal respiratory effort and able to speak in complete sentences GI Inspection: Yes normal to inspection Neuro General: patient oriented x3 and moves all extremities Cranial nerves: Yes Equal, round and reactive pupils present Cognition (Neuro): normal cognition Extrem General: Yes normal to inspection, Yes full ROM and Yes capillary refill normal Psych Appearance: grossly normal Mental Status: mental status grossly normal Affect: normal affect Attitude: cooperative Thought process: Normal thought process present Thought content: Normal thought content present Insight: Good insight present (Psych) Medications Administered Discontinued Medications Generic Name Dose Route Start Last Admin Trade Name Светлана PRN Reason Stop Dose Admin Lactated Ringer's 1,000 mls @ 999 mls/hr 07/13/24 23:00 07/14/24 01:55 Lr IV 07/14/24 00:00 Infused .Q1H1M PAN Infusion Lactated Ringer's 1,000 mls @ 999 mls/hr 07/14/24 00:15 07/14/24 01:56 Lr IV 07/14/24 01:15 999 mls/hr .Q1H1M PAN Administration Medical Decision Making Medical Decision Making MDM Narrative: Patient is a 74 year old assigned male at with a history of colon cancer and prostate cancer presenting to the emergency department today with left sided rib pain after a fall and weakness. Patient's physical exam was unremarkable. Patient's blood work showed an elevated WBC count of 18.7, total CK of 1109, and a repeat CK of 1114 after 2 liters of LR. Patient's urine showed no acute process. Patient's EKG was unremarkable. Patient's head and c-spine CTs showed no acute process. Patient's chest CT showed a possible pneumonia. Patient's clinical presentation is not consistent with sepsis (@0200). I spoke to the hospitalist team who agreed to admission. I explained my physical exam findings as well as all test results to the patient. I answered all questions asked by the patient. Patient verbalized agreement and understanding with this treatment plan and admission. Differential Diagnosis Differential Diagnoses: The differential diagnosis associated with the presentation includes Weakness Fall Rhabdomyalisis PNA Admission/Observation Consideration of admission/observation: Escalation of care including admission/observation considered Patient admitted. Consult Healthcare Provider Management of the patient was discussed with: Hospitalist (agreed to admission as noted in the MDM Rationale portion of this note.) Lab Data [facility] Lab Attestation statement: I reviewed the patient's lab results. My interpretation of these results are in the MDM Rationale portion of this note. 07/13/24 21:34 07/13/24 21:34 Labs: Lab Results 07/13/24 07/13/24 07/13/24 Range/Units 21:34 21:55 23:44 WBC 18.7 H (4.8-10.8) X10*3/uL RBC 5.36 (4.60-5.80) X10*6/uL Hgb 15.9 (14.0-18.0) g/dl Hct 45.2 (42.0-52.0) % MCV 84.3 (80.0-98.0) fL MCH 29.7 (27.0-33.0) pg MCHC 35.2 (31.0-36.0) g/dl RDW 13.4 (11.0-16.0) % Plt Count 261 (160-400) X10*3/uL MPV 8.8 L (9.4-12.4) fL Immature Gran % (Auto) 0.5 H (0.0-0.4) % Neut % (Auto) 87.0 H (45-73) % Lymph % (Auto) 5.3 L (20-40) % [place] % (Auto) 7.1 (2-11) % Eos % (Auto) 0.0 (0-4) % Baso % (Auto) 0.1 (0-2) % Lymph # (Auto) 1.0 L (1.2-4.9) X10*3/uL [place] # (Auto) 1.3 H (0.1-1.2) X10*3/uL Eos # (Auto) 0.0 (0.0-0.4) X10*3/uL Baso # (Auto) 0.0 (0.0-0.2) X10*3/uL Abs Immat Gran (auto) 0.09 H (0.00-0.03) X10*3/uL Absolute Neuts (auto) 16.2 H (2.0-8.3) x10*3/uL Absolute Nucleated RBC 0.000 (0.0-0.012) X10*3/uL Nucleated RBC % (auto) 0.0 (0.0-0.2) /100WBC PT 13.6 H (11.1-13.3) SEC INR 1.1 (0.9-1.1) APTT 27.3 (26.0-36.8) SEC Sodium 140 (135-145) mmol/L Potassium 4.2 (3.3-5.1) mmol/L Chloride 108 (96-108) mmol/L Carbon Dioxide 20 L (22-29) mmol/L Anion Gap 16 (12-20) BUN 27 H (9-16) mg/dL Creatinine 0.94 (0.5-1.4) mg/dL Estim Creat Clear Calc 59.0 Estimated GFR > 60 Random Glucose 123 H (60-115) mg/dL Calcium 10.2 D (8.4-10.2) mg/dL Magnesium 2.2 (1.6-2.6) mg/dL Total Bilirubin 2.2 H (0.0-1.0) mg/dL AST 37 (5-37) U/L ALT 24 (0-40) U/L Alkaline Phosphatase 66 (39-117) U/L Total Creatine Kinase 1109 H (38-174) U/L Troponin I High Sens 11.7 (<3.5-35.0) ng/L Total Protein 6.6 (6.5-8.0) g/dL Albumin 4.5 (3.5-5.0) g/dL Urine Color Dark Yellow Urine Appearance Clear Urine pH 5.5 (5.0-9.0) Ur Specific [place] >= 1.030 H (1.005-1.025) Urine Protein 30 (1+) H (Neg-Trace) mg/dL Urine Glucose (UA) Negative (Negative) mg/dL Urine Ketones 15 (Negative) mg/dL Urine Blood Trace H (Negative) Urine Nitrite Negative (Negative) Ur Leukocyte Esterase Trace H (Negative) Urine RBC 3-5 H (0-2) /HPF Urine WBC 0-5 (0-5) /HPF Ur Squamous Epith Cells 0-2 (0-2) /HPF Urine Bacteria None Seen (None Seen) Hyaline Casts 0-2 (0-2) /LPF Influenza Type A (PCR) NEGATIVE (Negative) Influenza Type B (PCR) NEGATIVE (Negative) RSV RNA Qual (PCR) NEGATIVE (Negative) SARS-CoV-2 RNA (RT-PCR) NEGATIVE (Negative) 07/14/24 Range/Units 01:45 WBC (4.8-10.8) X10*3/uL RBC (4.60-5.80) X10*6/uL Hgb (14.0-18.0) g/dl Hct (42.0-52.0) % MCV (80.0-98.0) fL MCH (27.0-33.0) pg MCHC (31.0-36.0) g/dl RDW (11.0-16.0) % Plt Count (160-400) X10*3/uL MPV (9.4-12.4) fL Immature Gran % (Auto) (0.0-0.4) % Neut % (Auto) (45-73) % Lymph % (Auto) (20-40) % [place] % (Auto) (2-11) % Eos % (Auto) (0-4) % Baso % (Auto) (0-2) % Lymph # (Auto) (1.2-4.9) X10*3/uL [place] # (Auto) (0.1-1.2) X10*3/uL Eos # (Auto) (0.0-0.4) X10*3/uL Baso # (Auto) (0.0-0.2) X10*3/uL Abs Immat Gran (auto) (0.00-0.03) X10*3/uL Absolute Neuts (auto) (2.0-8.3) x10*3/uL Absolute Nucleated RBC (0.0-0.012) X10*3/uL Nucleated RBC % (auto) (0.0-0.2) /100WBC PT (11.1-13.3) SEC INR (0.9-1.1) APTT (26.0-36.8) SEC Sodium (135-145) mmol/L Potassium (3.3-5.1) mmol/L Chloride (96-108) mmol/L Carbon Dioxide (22-29) mmol/L Anion Gap (12-20) BUN (9-16) mg/dL Creatinine (0.5-1.4) mg/dL Estim Creat Clear Calc Estimated GFR Random Glucose (60-115) mg/dL Calcium (8.4-10.2) mg/dL Magnesium (1.6-2.6) mg/dL Total Bilirubin (0.0-1.0) mg/dL AST (5-37) U/L ALT (0-40) U/L Alkaline Phosphatase (39-117) U/L Total Creatine Kinase 1114 H (38-174) U/L Troponin I High Sens (<3.5-35.0) ng/L Total Protein (6.5-8.0) g/dL Albumin (3.5-5.0) g/dL Urine Color Urine Appearance Urine pH (5.0-9.0) Ur Specific [place] (1.005-1.025) Urine Protein (Neg-Trace) mg/dL Urine Glucose (UA) (Negative) mg/dL Urine Ketones (Negative) mg/dL Urine Blood (Negative) Urine Nitrite (Negative) Ur Leukocyte Esterase (Negative) Urine RBC (0-2) /HPF Urine WBC (0-5) /HPF Ur Squamous Epith Cells (0-2) /HPF Urine Bacteria (None Seen) Hyaline Casts (0-2) /LPF Influenza Type A (PCR) (Negative) Influenza Type B (PCR) (Negative) RSV RNA Qual (PCR) (Negative) SARS-CoV-2 RNA (RT-PCR) (Negative) Independent Interpretation I performed an independent interpretation of an: EKG and CT Scan Interpretation: My interpretation is in agreement with the radiologist's impression of these imaging studies. - EXAMINATION: CT CHEST WITHOUT CONTRAST CLINICAL INFORMATION: Chest pain status-post fall. COMPARISON: Prior chest CT examinations, most recently 08/10/2023. TECHNIQUE: Multidetector volumetric CT imaging of the chest was done. Axial MIP volume rendering provided. Sagittal and coronal reformatted images were obtained. This CT examination was performed using dose optimization techniques as appropriate, variously including the following: *Automated exposure control *Adjustment of mA and/or kV according to patient size (this includes techniques or standardized protocols for targeted exams where dose is matched to indication/reason for exam; i.e. 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 There is plate-like scar/subsegmental atelectasis at the left base. LUNGS: There are multiple bilateral scattered benign, calcified granulomas. A few scattered 1-2 noncalcified nodules are seen within the right upper lobe laterally, best appreciated on the MIP sequence. Within the apicoposterior segment of the left upper lobe (26:92), a 3 mm noncalcified nodule is seen. These nodules are relatively stable from 06/13/2022, and they are considered benign. No new nodule, mass, infiltrate or groundglass opacity is seen. There is no generalized increase in peripheral interlobular septal markings. There is bibasilar linear scar/subsegmental atelectasis, without associated focal airway obstruction. There is further right apical pleural-parenchymal scarring, without focal airway obstruction. No generalized small airway thickening is seen. The central airways appear patent. MEDIASTINUM: The thyroid is unremarkable. There is no thoracic aortic aneurysm. There are mild atherosclerotic calcifications of the thoracic aorta. No mediastinal or hilar lymphadenopathy is seen. CORONARY ARTERY CALCIFICATION: Moderately severe. PLEURA: There is no pleural effusion. No pleural mass or thickening. AXILLA: No lymphadenopathy. There is asymmetric very mild left gynecomastia. UPPER ABDOMEN: There are multiple low-attenuation hepatic cysts, some too small to fully characterize with CT. Some of these within the right upper lobe appear lobulated and septated. There are incompletely covered bilateral renal cysts. The adrenal glands are unremarkable. OSSEOUS STRUCTURES: There is multi-level cervicothoracic spondylosis. No acute or aggressive osseous finding is noted. CT/CT chest wo IV con IMPRESSION: 1. There are benign, stable small noncalcified and calcified lung nodules, as detailed. Some of these within the right upper lobe show tree-in-bud arrangements, suggesting small airways or small vessels disease secondary to an infectious or inflammatory process. Please correlate clinically. 2. No new nodule, mass, infiltrate or groundglass opacity is seen. 3. There are scattered foci of scarring/subsegmental atelectasis, without associated focal airway obstruction. 4. No thoracic lymphadenopathy is seen. 5. There is moderately severe coronary artery atherosclerotic calcification. 6. There is multi-level cervicothoracic spondylosis Fleischner guidelines were followed. Electronically signed by: Jake Naylor MD 07/13/2024 10:53 PM EDT RP Dictated By: Jake Naylor MD Signed By: Electronically signed by Jake Nalyor MD 07/13/24 2253 - EXAMINATION: CT CERVICAL SPINE WITHOUT CONTRAST CLINICAL INFORMATION: Pain status-post fall. COMPARISON: None available. TECHNIQUE: Without the addition of intravenous contrast, multiple contiguous multidetector transaxial sections are obtained through the cervical spine. Multiplanar reformatted images are submitted. This CT examination was performed using dose optimization techniques as appropriate, variously including the following: *Automated exposure control *Adjustment of mA and/or kV according to patient size (this includes techniques or standardized protocols for targeted exams where dose is matched to indication/reason for exam; i.e. extremities or head) *Use of iterative reconstruction technique DLP: 1480 mGy-cm FINDINGS: Vertebral body heights are normal. At C2-3, there is moderate disc space narrowing and a 2 mm anterolisthesis. There is marked degenerative disc disease extending from C3-4 through C6-7. At C7-T1, there is mild disc space narrowing and a 2 mm anterolisthesis. There is moderately severe disc space narrowing at T1-2 and T2-3, with a grade 1 anterolisthesis. There is moderate disc space narrowing at T3-4. No acute fracture or spondylolisthesis is seen. There is multi-level endplate and facet arthropathy. The dens is intact. No prevertebral soft tissue swelling is seen. The bilateral lung apices appear clear. There is mild right apical pleural and parenchymal scarring. CT/CT cervical spine wo IV con IMPRESSION: 1. No acute fracture or spondylolisthesis is seen. 2. There is multi-level cervical and upper thoracic degenerative disc disease, with endplate and facet arthropathy. Degenerative disc disease is most pronounced extending from C3-4 through C6-7, where it is severe. Fleischner guidelines were followed. Electronically signed by: Jake Naylor MD 07/13/2024 10:37 PM EDT Dictated By: Jake Naylor MD Signed By: Electronically signed by Jake Naylor MD 07/13/24 2237 - EXAMINATION: CT HEAD WITHOUT CONTRAST CLINICAL INFORMATION: Pain status-post fall. COMPARISON: None available. TECHNIQUE: Contiguous axial imaging was performed from the skull base to vertex without intravenous administration of contrast. This CT examination was performed using dose optimization techniques as appropriate, variously including the following: *Automated exposure control *Adjustment of mA and/or kV according to patient size (this includes techniques or standardized protocols for targeted exams where dose is matched to indication/reason for exam; i.e. extremities or head) *Use of iterative reconstruction technique DLP: 800 mGy-cm FINDINGS: There is no acute intracranial hemorrhage or evidence of territorial infarction. No abnormal mass effect or midline shift is seen. Barone to white matter differentiation is well preserved. There is no abnormal attenuation within the brain parenchyma. The ventricles and sulci show proportional prominence, commensurate with advanced age. There is some asymmetry of the ventricles, which is likely congenital in etiology. No extra-axial fluid collections are identified. The calvarium and scalp soft tissues are normal. The middle ear cavity and mastoid air cells are clear. There is mild anterior ethmoid sinusitis. CT/CT head/brain wo IV con IMPRESSION: 1. No acute intracranial pathology. 2. There is mild ethmoid sinusitis. Electronically signed by: aJke Naylor MD 07/13/2024 10:32 PM EDT Dictated By: Jake Naylor MD Signed By: Electronically signed by Jake Naylor MD 07/13/24 2233 Radiology Impression Discussion of test interpretation with radiology: I have reviewed the radiologist's reading. Independent Historian Clinical information obtained from an independent historian. History obtained from or confirmed by: EMS (EMS provided additional history and confirmed the history provided by the patient.) Critical Care Time Critical Care Time Critical Care Time: Yes Total Critical Care Time: 44 Attestation: I spent 44 minutes of Critical Care Time with this patient. This does not include time spent on separately reported billable procedures. Discharge Plan Discharge Clinical Impression: Pneumonia, Fall, Elevated CK Patient Disposition: Admitted As Inpatient Print Language: Rw[place]an
[2024-07-13 21:49] LABS: MANUAL DIFF FLAG NO
[2024-07-13 21:51] LABS: Basophils Percent Auto 0.1 % (0-2); Hematocrit 45.2 % (42.0-52.0); Hemoglobin 15.9 g/dl (14.0-18.0); Imm Gran Abs Auto 0.09 X10*3/uL (0.00-0.03); Imm Gran Pct Auto 0.5 % (0.0-0.4); Lymphocytes Percent Auto 5.3 % (20-40); Mean Corpuscular HGB Conc 35.2 g/dl (31.0-36.0); Mean Corpuscular Hemoglobin 29.7 pg (27.0-33.0); Mean Corpuscular Volume 84.3 fL (80.0-98.0); Mean Platelet Volume 8.8 fL (9.4-12.4); Monocytes Absolute Auto 1.3 X10*3/uL (0.1-1.2); Monocytes Percent Auto 7.1 % (2-11); Neutrophils Absolute Auto 16.2 x10*3/uL (2.0-8.3); Platelet Count 261 X10*3/uL (160-400); Red Blood Count 5.36 X10*6/uL (4.60-5.80); Red Cell Distribution Width 13.4 % (11.0-16.0); White Blood Count 18.7 X10*3/uL (4.8-10.8)
[2024-07-13 21:56] LABS: INTERNATIONAL NORM RATIO 1.1 (0.9-1.1); Prothrombin Time 13.6 SEC (11.1-13.3)
[2024-07-13 21:59] LABS: Partial Thromboplastin Time 27.3 SEC (26.0-36.8)
[2024-07-13 22:04] LABS: Alanine Aminotransferase 24 U/L (0-40); Albumin Level 4.5 g/dL (3.5-5.0); Alkaline Phosphatase 66 U/L (39-117); Anion Gap 16 (12-20); Aspartate Amino Transferase 37 U/L (5-37); Bilirubin Total 2.2 mg/dL (0.0-1.0); Blood Urea Nitrogen 27 mg/dL (9-16); Calcium 10.2 mg/dL (8.4-10.2); Carbon Dioxide 20 mmol/L (22-29); Chloride 108 mmol/L (96-108); Estimated Glomerular Filt Rate > 60; Glucose Random 123 mg/dL (60-115); Magnesium 2.2 mg/dL (1.6-2.6); Potassium 4.2 mmol/L (3.3-5.1); Sodium 140 mmol/L (135-145); Total Protein 6.6 g/dL (6.5-8.0)
[2024-07-13 22:11] LABS: Troponin-I High Sensitivity 11.7 ng/L (<3.5-35.0)
[2024-07-13 22:35] LABS: Influenza A PCR NEGATIVE (Negative); Influenza B PCR NEGATIVE (Negative); Resp Syncy Virus RNA Qual PCR NEGATIVE (Negative); SARS COV2 PCR INHOUSE NEGATIVE (Negative)
[2024-07-13] MEDS: Lactated Ringers 1,000 ML 999 ML IV (23:03)
[2024-07-13 23:46] VITALS: BP 143/82; PULSE 96; TEMP 36.7; O2SAT 94
[2024-07-13 23:56] LABS: Appearance Urine Clear; Color Urine Dark Yellow; Glucose Urine UA Negative (Negative); Leukocyte Esterase Urine Trace (Negative); Nitrite Urine Negative (Negative); PH 5.5 (5.0-9.0); Specific Gravity - Urine >= 1.030 (1.005-1.025); UMIC TRIGGER UACC YES; Urine Blood Trace (Negative); Urine Ketones 15 mg/dL (Negative); Urine Protein 30 (1+) mg/dL (Neg-Trace)
[2024-07-13 23:59] LABS: Bacteria Urine None Seen (None Seen); Hyaline Casts Urine 0-2 /LPF (0-2); Squamous Epithelial Cell Urine 0-2 /HPF (0-2); WBC Urine 0-5 /HPF (0-5)
[2024-07-14] VITALS (7 sets, daily range): BP systolic 122–149; BP diastolic 65–79; PULSE 81–98; RESP 14–17; TEMP 36.2–37.1; O2SAT 96–99
[2024-07-14] MEDS: Lactated Ringers 1,000 ML 999 ML IV ×2 (01:56→05:05)
[2024-07-14] MEDS: cefTRIAXone sodium 1 GM in 0.9 % Sodium Chloride 50 ML IV (03:16)
--- NOTE | 2024-07-14 03:17 | PC.NURSE ---
Per Emely, ED provider blood draw for lactic acid and blood cultures not needed at this time.
--- NOTE | 2024-07-14 03:33 | P.HPHOSP_ITS ---
History of Present Illness Date of Service: 07/14/24 Chief Complaint: Weakness, cough This is a 74-year-old male with pertinent history of PE on Eliquis, bronchiectasis, prostate cancer, colon cancer status post hemicolectomy, lymphoma, tadalafil who presents to the emergency department for evaluation of weakness and cough. Patient states he fell 2 days prior to presentation while walking his dog. On the day of presentation, he was feeling weak and it took him 2 hours to change in the bathroom. He also complains of cough with purulent sputum production. States he has had a cough for a while but recent change in cough frequency. No fever, chills, palpitations, shortness of breath, abdominal pain, changes in urinary or bowel habits. Patient fell on his left side and is having left-sided rib pain. In the emergency department, patient was found to be septic and imaging concerning for right-sided pneumonia. Review of Systems 2 Constitutional: Constitutional: Reports fatigue, Reports malaise and Reports poor appetite Cardiovascular: Cardiovascular: Reports no additional cardiovascular complaints Respiratory: Respiratory: Reports cough Gastrointestinal: Gastrointestinal: Reports no additional gastrointestinal complaints Genitourinary: Genitourinary: Reports no additional male genitourinary complaints Endocrine: Endocrine: Reports fatigue PMFSH Medical History Pulmonary nodule Bronchiectasis Colon cancer Prostate CA Pneumonia Pertinent family history: No family history of early CAD Social History Patient Tobacco Use Status: Former Tobacco user Tobacco use type: Cigarette Years Smoked: 25 Years Smoked in Last 30 Days: No Use of substances other than those prescribed or required for medical reasons: No Advance Directives: No Advance Directives Information Provided: Yes Do you have a plan to hurt others: No Plan Nutrition Risks: No Nutritional Risk Meds Allergies Allergy/AdvReac Type Severity Reaction Status Date / Time No Known Allergies Allergy Verified 07/13/24 20:45 Home Medications ?Medication ?Instructions ?Recorded ?Confirmed ?Last Taken ?Type apixaban 5 mg tablet (Eliquis) 5 mg PO Q12H 05/11/22 Unknown History guaifenesin 600 mg tablet, 0 mg PO 05/11/22 Unknown History extended release 12 hr (Mucus Relief ER) tadalafil 5 mg tablet 5 mg PO DAILY 05/11/22 Unknown History Physical Exam 2 Vital Signs and Narrative: Vital Signs: Last Vital Signs Temp 98.7 F 07/14/24 03:30 Pulse 97 07/14/24 03:30 Resp 16 07/14/24 03:30 BP 135/72 07/14/24 03:30 Pulse Ox 97 07/14/24 03:30 O2 Del Method Room Air 07/14/24 03:30 BMI result Body Mass Index 19.7 Middle-aged male lying in bed in no distress Neck supple, no JVD Regular rate and rhythm, S1-S2 heard Right-sided crackles present Abdomen soft nontender, no guarding, no rigidity Patient is awake, alert and oriented to self, place, time and person ; no focal motor deficit Psych: Normal mood No pedal edema Results Labs 07/14/24 03:58 07/14/24 03:58 Labs: Laboratory Results - last 24 hr 07/13/24 07/13/24 07/13/24 21:34 21:55 23:44 MCV 84.3 MCH 29.7 MCHC 35.2 RDW 13.4 Plt Count 261 MPV 8.8 L Immature Gran % (Auto) 0.5 H Neut % (Auto) 87.0 H Lymph % (Auto) 5.3 L Keith % (Auto) 7.1 Eos % (Auto) 0.0 Baso % (Auto) 0.1 Lymph # (Auto) 1.0 L Keith # (Auto) 1.3 H Eos # (Auto) 0.0 Baso # (Auto) 0.0 Abs Immat Gran (auto) 0.09 H Absolute Neuts (auto) 16.2 H Absolute Nucleated RBC 0.000 Nucleated RBC % (auto) 0.0 PT 13.6 H INR 1.1 APTT 27.3 Anion Gap 16 Estim Creat Clear Calc 59.0 Estimated GFR > 60 Random Glucose 123 H Calcium 10.2 D Magnesium 2.2 Total Bilirubin 2.2 H AST 37 ALT 24 Alkaline Phosphatase 66 Total Creatine Kinase 1109 H Troponin I High Sens 11.7 Total Protein 6.6 Albumin 4.5 Urine Color Dark Yellow Urine Appearance Clear Urine pH 5.5 Ur Specific [place] >= 1.030 H Urine Protein 30 (1+) H Urine Glucose (UA) Negative Urine Ketones 15 Urine Blood Trace H Urine Nitrite Negative Ur Leukocyte Esterase Trace H Urine RBC 3-5 H Urine WBC 0-5 Ur Squamous Epith Cells 0-2 Urine Bacteria None Seen Hyaline Casts 0-2 Influenza Type A (PCR) NEGATIVE Influenza Type B (PCR) NEGATIVE RSV RNA Qual (PCR) NEGATIVE SARS-CoV-2 RNA (RT-PCR) NEGATIVE 07/14/24 01:45 MCV MCH MCHC RDW Plt Count MPV Immature Gran % (Auto) Neut % (Auto) Lymph % (Auto) Keith % (Auto) Eos % (Auto) Baso % (Auto) Lymph # (Auto) Keith # (Auto) Eos # (Auto) Baso # (Auto) Abs Immat Gran (auto) Absolute Neuts (auto) Absolute Nucleated RBC Nucleated RBC % (auto) PT INR APTT Anion Gap Estim Creat Clear Calc Estimated GFR Random Glucose Calcium Magnesium Total Bilirubin AST ALT Alkaline Phosphatase Total Creatine Kinase 1114 H Troponin I High Sens Total Protein Albumin Urine Color Urine Appearance Urine pH Ur Specific [place] Urine Protein Urine Glucose (UA) Urine Ketones Urine Blood Urine Nitrite Ur Leukocyte Esterase Urine RBC Urine WBC Ur Squamous Epith Cells Urine Bacteria Hyaline Casts Influenza Type A (PCR) Influenza Type B (PCR) RSV RNA Qual (PCR) SARS-CoV-2 RNA (RT-PCR) Imaging Radiologist's Impressions: Impressions Head CT 07/13/24 20:36 IMPRESSION: 1. No acute intracranial pathology. 2. There is mild ethmoid sinusitis. Electronically signed by: Jake Naylor MD 07/13/2024 10:32 PM EDT RP Cervical Spine CT 07/13/24 20:40 IMPRESSION: 1. No acute fracture or spondylolisthesis is seen. 2. There is multi-level cervical and upper thoracic degenerative disc disease, with endplate and facet arthropathy. Degenerative disc disease is most pronounced extending from C3-4 through C6-7, where it is severe. Fleischner guidelines were followed. Electronically signed by: Jake Naylor MD 07/13/2024 10:37 PM EDT RP Chest CT 07/13/24 20:43 IMPRESSION: 1. There are benign, stable small noncalcified and calcified lung nodules, as detailed. Some of these within the right upper lobe show tree-in-bud arrangements, suggesting small airways or small vessels disease secondary to an infectious or inflammatory process. Please correlate clinically. 2. No new nodule, mass, infiltrate or groundglass opacity is seen. 3. There are scattered foci of scarring/subsegmental atelectasis, without associated focal airway obstruction. 4. No thoracic lymphadenopathy is seen. 5. There is moderately severe coronary artery atherosclerotic calcification. 6. There is multi-level cervicothoracic spondylosis Fleischner guidelines were followed. Electronically signed by: Jake Naylor MD 07/13/2024 10:53 PM EDT RP Workstation: [id number] Assessment and Plan (1) Bronchiectasis: Qualifiers: Bronchiectasis type: uncomplicated Qualified Code(s): J47.9 - Bronchiectasis, uncomplicated Status: Acute Plan This is a 74-year-old male with pertinent history of PE on Eliquis, bronchiectasis, prostate cancer, colon cancer status post hemicolectomy, lymphoma, tadalafil who presents to the emergency department for evaluation of weakness and cough. #. Sepsis due to acute exacerbation of bronchiectasis: Resuscitated with IV crystalloids. Lactic acid and blood culture obtained. Initiating empiric IV Levaquin. #. Generalized weakness in the setting of above: May need physical therapy if weakness continues with resolution of infection #. History of PE: On Eliquis #. BPH: On tadalafil Med rec pending DVT prophylaxis: Eliquis Full code Admit as inpatient and will require two night minimum hospital stay for IV antibiotics (as above), which is not possible in a lesser acute setting. Quality Stroke Does the patient have a stroke diagnosis?: No VTE Prior VTE?: No VTE Risk Level:: Medical - moderate - high VTE Device Contraindication: Treatment Not Indicated VTE Drug Contraindication: N/A - Med Ordered
[2024-07-14 04:08] LABS: Basophils Percent Auto 0.2 % (0-2); Eosinophils Percent Auto 0.3 % (0-4); Hematocrit 41.8 % (42.0-52.0); Hemoglobin 14.6 g/dl (14.0-18.0); Imm Gran Abs Auto 0.05 X10*3/uL (0.00-0.03); Imm Gran Pct Auto 0.3 % (0.0-0.4); Lymphocytes Absolute Auto 1.6 X10*3/uL (1.2-4.9); Lymphocytes Percent Auto 10.6 % (20-40); MANUAL DIFF FLAG SCAN; Mean Corpuscular HGB Conc 34.9 g/dl (31.0-36.0); Mean Corpuscular Hemoglobin 29.4 pg (27.0-33.0); Mean Corpuscular Volume 84.3 fL (80.0-98.0); Mean Platelet Volume 8.6 fL (9.4-12.4); Monocytes Absolute Auto 1.7 X10*3/uL (0.1-1.2); Monocytes Percent Auto 11.2 % (2-11); Neutrophils Absolute Auto 11.5 x10*3/uL (2.0-8.3); Neutrophils Percent Auto 77.4 % (45-73); Platelet Count 204 X10*3/uL (160-400); Red Blood Count 4.96 X10*6/uL (4.60-5.80); Red Cell Distribution Width 13.5 % (11.0-16.0); SCAN SMEAR FLAG 1; White Blood Count 14.8 X10*3/uL (4.8-10.8)
[2024-07-14 04:19] LABS: Lactic Acid 1.1 mmol/L (0.5-2.0)
[2024-07-14 04:26] LABS: SLIDE REVIEW VERIFIED
[2024-07-14 04:29] LABS: Anion Gap 12 (12-20); Blood Urea Nitrogen 23 mg/dL (9-16); Calcium 9.1 mg/dL (8.4-10.2); Carbon Dioxide 20 mmol/L (22-29); Chloride 111 mmol/L (96-108); Creatinine Clr Calc Pharmacy 69.3; Estimated Glomerular Filt Rate > 60; Glucose Random 99 mg/dL (60-115); Potassium 3.9 mmol/L (3.3-5.1); Sodium 139 mmol/L (135-145)
[2024-07-14] MEDS: levoFLOXacin/D5W 750 MG/150 ML PIGGYBACK 100 MG IV (04:40)
--- NOTE | 2024-07-14 05:20 | MHC.EDTECH ---
Pt incontinent of stool. Pt cleaned and repositioned with help of RN. Warm blankets given, call chacon within reach.
--- NOTE | 2024-07-14 06:48 | MHC.EDTECH ---
Belongings list done by T/w. Pt has meds at bedside; T/w made RN Мария aware of this. Noted in belongings list.
--- NOTE | 2024-07-14 07:09 | PC.NURSE ---
Patient is alert and oriented x4, VSS. Patient denies ay pain at rest, patient c/o 3-02/19 pain with repositioning/movement. Patient medicated per MAR. Patient is able to make his needs known and uses call chacon appropriately.
--- NOTE | 2024-07-14 08:30 | PC.NURSE ---
pT IS SLEEPING. Skin PWD.
--- NOTE | 2024-07-14 09:12 | PC.NURSE ---
upp eatingbreakfast and recounting the events that lead to ED visit with consistency. continues to have left sided rib/trunk pain. was lying on floor all day sunday and sunday.
[2024-07-14] MEDS: Acetaminophen 325 MG TABLET 650 MG PO (09:20)
--- NOTE | 2024-07-14 09:20 | PC.NURSE ---
unable to fully examine patient because sitting up for lungsounds is painful. medicated with tylenol and will return for reeval. axox3.
--- NOTE | 2024-07-14 09:34 | PHA.MEDREC ---
Pharmacy Consult ? Medication Reconciliation Pharmacy has completed the medication reconciliation. Spoke to patient and confirmed medication list. Last dose of eliquis and tadalafil was Sunday morning.
--- NOTE | 2024-07-14 10:45 | PC.NURSE ---
Has been on and off bedpan for over an hour. Now off and repositioned. additional pain meds requested.
--- NOTE | 2024-07-14 10:56 | PM.EVENT ---
Event Note Date of Service: 07/14/24 Event Note: This is a 74-year-old male with pertinent history of PE on Eliquis, bronchiectasis, prostate cancer, colon cancer status post hemicolectomy, lymphoma, tadalafil who presents to the emergency department for evaluation of weakness and cough. Sepsis due to acute exacerbation of bronchiectasis vs PNA blood culture pending not requiring oxygen IV Levaquin. Fall with injury to left side and chest with pain Generalized weakness in the setting of above physical therapy consult History of PE On Eliquis BPH On tadalafil DVT prophylaxis: Nikolay Attending Dr. Falk Full code Time Spent With Patient Time: Total time managing care of this patient today ____ minutes.
[2024-07-14] MEDS: oxyCODONE HCl Immed Release 5 MG TABLET PO ×2 (11:38→20:37)
--- NOTE | 2024-07-14 16:45 | PC.NURSE ---
repositioned and contnues to have pain with all movement in bed. BM's have slowed and patient ate lunch
[2024-07-14] MEDS: Morphine Sulfate 2 MG/ML CARTRIDGE 1 MG IVPUSH (17:58)
[2024-07-14] MEDS: Apixaban 5 MG TABLET PO (17:59)
--- NOTE | 2024-07-14 19:00 | PC.NURSE ---
received report from Mary ORDAZ, assume care of pt at this time
[2024-07-15 01:42] VITALS: BP 141/75; PULSE 85; RESP 17; TEMP 36.5; O2SAT 94
[2024-07-15] MEDS: Morphine Sulfate 2 MG/ML CARTRIDGE 1 MG IVPUSH ×4 (02:00→21:39)
[2024-07-15] MEDS: Apixaban 5 MG TABLET PO ×2 (05:00→17:38)
[2024-07-15] MEDS: levoFLOXacin/D5W 750 MG/150 ML PIGGYBACK 100 MG IV (05:00)
[2024-07-15 07:51] VITALS: BP 128/64; PULSE 93; RESP 12; TEMP 37; O2SAT 95
--- NOTE | 2024-07-15 08:14 | HO.PM.IMPN ---
Subjective Subjective Date of Service: 07/15/24 Review of Systems Follow up left side chest pain from fall still with pain and stiffness this morning Physical Exam Vital Signs: Vital Signs: Last Vital Signs Temp 98.6 F 07/15/24 07:51 Pulse 93 07/15/24 07:51 Resp 12 07/15/24 07:51 BP 128/64 07/15/24 07:51 Pulse Ox 95 07/15/24 07:51 O2 Del Method Room Air 07/15/24 07:51 BMI result Body Mass Index 19.7 Appearing in no acute distress lung sounds are clear to auscultation heart regular rate rhythm, clear S1, S2 positive bowel sounds, abdomen is soft, nontender neuro patient is alert x3, no focal deficits Objective Data Active Medications Acetaminophen (Acetaminophen 325 Mg Tablet) 650 mg PO Q6H PRN PRN Reason: Pain, Mild (Pain Scale 1-3), fever or headache Last Admin: 07/14/24 09:20 Dose: 650 mg Documented By: ALEAH Apixaban (Apixaban 5 Mg Tablet) 5 mg PO Q12H [facility] Last Admin: 07/15/24 05:00 Dose: 5 mg Documented By: ANTONIO Calcium Carbonate (Calcium Carbonate 750 Mg Tab.Chew) 750 mg PO Q4H PRN PRN Reason: Heartburn Levofloxacin (Levaquin) 750 mg in 150 mls @ 100 mls/hr IV Q24H [facility] Last Infusion: 07/15/24 06:31 Dose: Infused Documented By: ANTONIO Magnesium Hydroxide (Milk Of Magnesia 30 Ml Oral.Susp) 30 ml PO DAILY PRN PRN Reason: Constipation Melatonin (Melatonin 3 Mg Tablet) 6 mg PO BEDTIME PRN PRN Reason: Insomnia Melatonin (Melatonin 3 Mg Tablet) 1.5 mg PO BEDTIME [facility] Last Admin: 07/14/24 20:37 Dose: Not Given Documented By: ALEXANDRIA Non-Admin Reason: Patient Refused Morphine Sulfate (Morphine Sulfate 2 Mg/Ml Cartridge) 1 mg IVPUSH Q4H PRN; Protocol PRN Reason: Pain, Moderate(Pain Scale 4-6) Last Admin: 07/15/24 02:00 Dose: 1 mg Documented By: ANTONIO Pt Own (Tadalafil 5 (Mg Tablet)) 5 mg PO DAILY [facility] Ondansetron HCl (Ondansetron Hcl 4 Mg/2 Ml Vial) 4 mg IVPUSH Q8H PRN PRN Reason: Nausea and Vomiting Oxycodone HCl (Oxycodone Hcl Immed Release 5 Mg Tablet) 5 mg PO Q4H PRN PRN Reason: Pain, Severe (Pain Scale 7-10) Last Admin: 07/14/24 20:37 Dose: 5 mg Documented By: ALEXANDRIA Sodium Chloride (0.9 % Sodium Chloride Flush 3 Ml Syringe) 3 ml IVFLUSH QSHIFT [facility] Last Admin: 07/14/24 23:23 Dose: Not Given Documented By: ANTONIO Non-Admin Reason: Patient Asleep Labs 07/14/24 03:58 07/15/24 07:54 Microbiology Microbiology Results: Microbiology 07/14/24 03:58 Blood Culture - Preliminary Blood - Venous No growth after 24 hours. 07/14/24 03:58 Blood Culture - Preliminary Blood - Venous No growth after 24 hours. Assessment and Plan (1) Elevated CK: Status: Acute (2) Fall: Status: Acute Plan This is a 74-year-old male with pertinent history of PE on Eliquis, bronchiectasis, prostate cancer, colon cancer status post hemicolectomy, lymphoma, tadalafil who presents to the emergency department for evaluation of weakness and cough. Had a fall at home and was down for at least 24 hrs on the floor unable to get up Sepsis due to acute exacerbation of bronchiectasis vs PNA blood culture neg after 24 hrs not requiring oxygen IV Levaquin. Fall with injury to left side and chest with pain CPK down to 533 Generalized weakness in the setting of above physical therapy consult>rec STR Flexeril, lidocaine patch and morphine for pain and discomfort History of PE On Eliquis BPH On tadalafil DVT prophylaxis: Nikolay Attending Dr. Corado Full code Quality Stroke Does the patient have a stroke diagnosis?: No VTE Prior VTE?: No VTE Risk Level:: Medical - moderate - high VTE Device Contraindication: Treatment Not Indicated VTE Drug Contraindication: N/A - Med Ordered
[2024-07-15 08:23] LABS: Anion Gap 14 (12-20); Blood Urea Nitrogen 16 mg/dL (9-16); Calcium 8.7 mg/dL (8.4-10.2); Carbon Dioxide 20 mmol/L (22-29); Chloride 107 mmol/L (96-108); Creatinine Clr Calc Pharmacy 74.9; Estimated Glomerular Filt Rate > 60; Glucose Random 119 mg/dL (60-115); Potassium 3.8 mmol/L (3.3-5.1); Sodium 137 mmol/L (135-145)
[2024-07-15] MEDS: Lidocaine 4 % Patch ADH..PATCH 1 PATCH TRANSDERMA (08:40)
[2024-07-15] MEDS: Cyclobenzaprine HCl 5 MG TABLET PO (08:41)
[2024-07-15] MEDS: TADALAFIL 5 MG 5 EACH PO (08:41)
[2024-07-15] MEDS: 0.9 % Sodium Chloride Flush 3 ML SYRINGE IVFLUSH ×2 (08:42→17:46)
[2024-07-15 10:33] VITALS: BP 128/64; PULSE 93; O2SAT 95
--- NOTE | 2024-07-15 11:44 | P.CDIM_ITS ---
PROVIDER RESPONSE TEXT: To clarify, the appropriate diagnosis supported by the clinical indicators: Traumatic Rhabdomyolysis QUERY TEXT: PHYSICIAN'S DOCUMENTATION REQUEST Date of Query: 07/15/2024 08:30 AM EDT Patient Name: Jose Juan Ospina Admit Date: 07/14/2024 Dear Patsy Irizarry BUSINESS CASE ANALYST, A review of the medical record indicates additional documentation may be needed. Please review below and update the documentation accordingly. Clinical Indicators: Falls? injury to left side and chest with pain. CPK 1114 Generalized weakness. Flexeril, lidocaine patch and morphine for pain and discomfort. Possible diagnosis relevant to the information above, if so possible to note this if agree? Nontraumatic Rhabdomyolysis possible, probable, suspected Traumatic Rhabdomyolysis Not treating Rhabdomyolysis Other (explain) Clinically unable to determine (explain) Thank you, Marion Donahue, CCS, CDIS Use of terms such as suspected, likely, concern for, or probable (associated with a specific diagnosi s that is being evaluated, monitored, or treated as if it exists) are acceptable and can be coded in the inpatient se tting, when documented at the time of discharge. Please use your independent medical judgment in providing your response. THIS QUERY IS PART OF THE PERMANENT MEDICAL RECORD
--- NOTE | 2024-07-15 14:32 | MHC.CM.PN ---
Addendum entered by Zoya Sharpe RN 07/15/24 14:34: NO HCP ON FILE IN MEDICAL RECORD. COPY REQUESTED. Original Note: PATIENT LIVES WITH A HOUSE MATE AND IS INDEPENDENT WITH ADLs AT BASELINE. NO DME OR VNA SERVICES. HE HOPES TO DC HOME AT TIME OF DISCHARGE. CASE MANAGEMENT FOLLOWING. IMM 07/15 IN CHART.
[2024-07-15] MEDS: oxyCODONE HCl Immed Release 5 MG TABLET PO (14:37)
--- NOTE | 2024-07-15 14:43 | MHC.CM.PN ---
ANGELIC AMBROSE IS STARTING AUTH PROCESS. PATIENT IWLL NEED GUEST DOSING ARRANGED AT [facility] IN [place] AND A LESS THAN 30 DAY ANTICIPATED STAY IN DC SUMMARY.
[2024-07-15 15:50] VITALS: BP 118/60; PULSE 96; RESP 18; TEMP 36.4; O2SAT 93
[2024-07-15 19:04] VITALS: BP 130/76; PULSE 109; RESP 18; TEMP 37.1; O2SAT 92
[2024-07-15] MEDS: Melatonin 3 MG TABLET 1.5 MG PO (21:38)
[2024-07-15] MEDS: guaiFENesin DM 100/10/5 ML 5 ML SYRUP PO (21:38)
[2024-07-16 03:02] VITALS: BP 137/80; PULSE 89; RESP 20; TEMP 36.4; O2SAT 94
[2024-07-16] MEDS: levoFLOXacin/D5W 750 MG/150 ML PIGGYBACK 100 MG IV (04:34)
[2024-07-16] MEDS: Apixaban 5 MG TABLET PO ×2 (04:35→18:02)
[2024-07-16 07:53] VITALS: BP 129/73; PULSE 85; RESP 18; TEMP 36.6; O2SAT 94
[2024-07-16 08:38] VITALS: BP 129/73; PULSE 85; O2SAT 94
[2024-07-16] MEDS: Lidocaine 4 % Patch ADH..PATCH 1 PATCH TRANSDERMA (08:58)
[2024-07-16] MEDS: TADALAFIL 5 MG 5 EACH PO (08:58)
[2024-07-16] MEDS: 0.9 % Sodium Chloride Flush 3 ML SYRINGE IVFLUSH ×3 (08:59→21:04)
[2024-07-16] MEDS: Cyclobenzaprine HCl 5 MG TABLET PO (09:13)
[2024-07-16] MEDS: Morphine Sulfate 2 MG/ML CARTRIDGE 1 MG IVPUSH (09:13)
[2024-07-16] MEDS: guaiFENesin DM 100/10/5 ML 5 ML SYRUP PO ×4 (09:22→21:03)
--- NOTE | 2024-07-16 11:01 | P.PNIM_ITS ---
Subjective Subjective Date of Service: 07/16/24 Interval History: Complaining of persistent left-sided chest pain, and diarrhea has had 10 bowel movement small loose, blood-tinged, denies lower abdominal pain, no tenesmus, no straining. Review of Systems All other system reviewed and are negative. Physical Exam 2 Vital Signs: Vital Signs: Last Vital Signs Temp 97.8 F 07/16/24 07:53 Pulse 85 07/16/24 08:38 Resp 18 07/16/24 07:53 BP 129/73 07/16/24 08:38 Pulse Ox 94 07/16/24 08:38 O2 Del Method Room Air 07/16/24 07:53 BMI result Body Mass Index 19.7 Const: Other: General awake alert x3, in no acute distress. Neck no JVD. CVS regular rate rhythm, Respiratory lungs clear to auscultation, no respiratory distress, diminished Gastrointestinal abdomen soft, non tender, bowel sounds audible, no guarding , no rigidity. Extremities no edema. Neuro non focal Skin no rash Appropriate affect Objective Data Active Medications Acetaminophen (Acetaminophen 325 Mg Tablet) 650 mg PO Q6H PRN PRN Reason: Pain, Mild (Pain Scale 1-3), fever or headache Last Admin: 07/14/24 09:20 Dose: 650 mg Documented By: ALEAH Apixaban (Apixaban 5 Mg Tablet) 5 mg PO Q12H [facility] Last Admin: 07/16/24 04:35 Dose: 5 mg Documented By: ANTONIO Calcium Carbonate (Calcium Carbonate 750 Mg Tab.Chew) 750 mg PO Q4H PRN PRN Reason: Heartburn Cyclobenzaprine HCl (Cyclobenzaprine Hcl 5 Mg Tablet) 5 mg PO TID PRN PRN Reason: muscle pain Last Admin: 07/16/24 09:13 Dose: 5 mg Documented By: REYNA Levofloxacin (Levaquin) 750 mg in 150 mls @ 100 mls/hr IV Q24H [facility] Last Infusion: 07/16/24 06:05 Dose: Infused Documented By: ANTONIO Lidocaine (Lidocaine 4 % Patch Adh..Patch) 1 patch TRANSDERMA DAILY [facility]; Protocol Last Admin: 07/16/24 08:58 Dose: 1 patch Documented By: REYNA Magnesium Hydroxide (Milk Of Magnesia 30 Ml Oral.Susp) 30 ml PO DAILY PRN PRN Reason: Constipation Melatonin (Melatonin 3 Mg Tablet) 6 mg PO BEDTIME PRN PRN Reason: Insomnia Melatonin (Melatonin 3 Mg Tablet) 1.5 mg PO BEDTIME [facility] Last Admin: 07/15/24 21:38 Dose: 1.5 mg Documented By: ANTONIO Morphine Sulfate (Morphine Sulfate 2 Mg/Ml Cartridge) 1 mg IVPUSH Q4H PRN; Protocol PRN Reason: Pain, Moderate(Pain Scale 4-6) Last Admin: 07/16/24 09:13 Dose: 1 mg Documented By: REYNA Pt Own (Tadalafil 5 (Mg Tablet)) 5 mg PO DAILY [facility] Last Admin: 07/16/24 08:58 Dose: 5 mg Documented By: REYNA Ondansetron HCl (Ondansetron Hcl 4 Mg/2 Ml Vial) 4 mg IVPUSH Q8H PRN PRN Reason: Nausea and Vomiting Oxycodone HCl (Oxycodone Hcl Immed Release 5 Mg Tablet) 5 mg PO Q4H PRN PRN Reason: Pain, Severe (Pain Scale 7-10) Last Admin: 07/15/24 14:37 Dose: 5 mg Documented By: ANGELA Sodium Chloride (0.9 % Sodium Chloride Flush 3 Ml Syringe) [facility] Last Admin: 07/16/24 08:59 Dose: 3 ml Documented By: REYNA Labs 07/14/24 03:58 07/15/24 07:54 Microbiology Microbiology Results: Microbiology 07/14/24 03:58 Blood Culture - Preliminary Blood - Venous No growth after 48 hours. 07/14/24 03:58 Blood Culture - Preliminary Blood - Venous No growth after 48 hours. Assessment and Plan (1) Elevated CK: Status: Acute (2) Fall: Status: Acute (3) Pulmonary nodule: Status: Acute (4) Bronchiectasis: Status: Acute Plan 74-year-old male with pertinent history of PE on Eliquis, bronchiectasis, prostate cancer, colon cancer status post hemicolectomy, lymphoma, tadalafil who presents to the emergency department for evaluation of weakness and cough. Had a fall at home and was down for at least 24 hrs on the floor unable to get up Sepsis due to acute exacerbation of bronchiectasis vs PNA blood culture neg after 24 hrs not requiring oxygen IV Levaquin d2 Add scheduled cough medication Fall with injury to left side and chest with pain Persistent left sided chest pain CPK improved to 533 physical therapy consult>rec STR On Flexeril, lidocaine patch and morphine for pain Will DC morphine, recommend oxycodone with Tylenol q.6 hours as needed Add incentive spirometry. Diarrhea Likely related to antibiotics will check stool for C diff, use Imodium if negative History of PE On Eliquis BPH On tadalafil DVT prophylaxis: Eliquis Full code Patient need continued inpatient hospitalization for management of sepsis, diarrhea likely related to antibiotics and pain management Quality Stroke Does the patient have a stroke diagnosis?: No VTE Prior VTE?: No VTE Risk Level:: Medical - moderate - high VTE Device Contraindication: Treatment Not Indicated VTE Drug Contraindication: N/A - Med Ordered
[2024-07-16 13:00] LABS: CDiff Gene PCR NEGATIVE (Negative)
[2024-07-16] MEDS: Loperamide HCl 2 MG CAPSULE PO (13:24)
[2024-07-16 14:29] VITALS: BP 129/73; PULSE 85; O2SAT 94
--- NOTE | 2024-07-16 16:09 | MHC.CM.PN ---
Patient not medically cleared for dc. CM will continue to follow.
[2024-07-16 16:24] VITALS: BP 116/63; PULSE 110; RESP 20; TEMP 36.9; O2SAT 94
[2024-07-16] MEDS: Acetaminophen 325 MG TABLET 650 MG PO (16:35)
[2024-07-16] MEDS: oxyCODONE HCl Immed Release 5 MG TABLET PO (16:36)
[2024-07-16 18:59] VITALS: BP 131/71; PULSE 84; RESP 16; TEMP 36.2; O2SAT 96
[2024-07-16] MEDS: Melatonin 3 MG TABLET 1.5 MG PO (21:04)
[2024-07-17 02:42] VITALS: BP 140/86; PULSE 87; RESP 18; TEMP 37.2; O2SAT 94
[2024-07-17] MEDS: Cyclobenzaprine HCl 5 MG TABLET PO ×2 (03:28→22:36)
[2024-07-17] MEDS: Loperamide HCl 2 MG CAPSULE 4 MG PO (03:29)
[2024-07-17] MEDS: levoFLOXacin/D5W 750 MG/150 ML PIGGYBACK 100 MG IV (03:33)
[2024-07-17] MEDS: Apixaban 5 MG TABLET PO ×2 (05:25→17:05)
--- NOTE | 2024-07-17 06:29 | PC.NURSE ---
Late entry: Pt c/o of having loose stools and requested Imodium. MD Rosales notified of the pt's request. Prior shift, pt had multiple episodes of loose stools. One time dose of Imodium 4mg PO was ordered along with GI panel lab. See MAR for administration of one time dose of Imodium. Unable to send down sample due to limited amount of stool. Will continue to monitor. Plan of care ongoing.
[2024-07-17 06:53] LABS: Hematocrit 37.6 % (42.0-52.0); Hemoglobin 12.8 g/dl (14.0-18.0); Mean Corpuscular Volume 85.3 fL (80.0-98.0); Mean Platelet Volume 9.3 fL (9.4-12.4); Platelet Count 175 X10*3/uL (160-400); Red Blood Count 4.41 X10*6/uL (4.60-5.80); Red Cell Distribution Width 13.1 % (11.0-16.0); White Blood Count 7.5 X10*3/uL (4.8-10.8)
[2024-07-17 07:11] LABS: Anion Gap 11 (12-20); Blood Urea Nitrogen 13 mg/dL (9-16); Calcium 8.6 mg/dL (8.4-10.2); Carbon Dioxide 24 mmol/L (22-29); Chloride 103 mmol/L (96-108); Creatinine Clr Calc Pharmacy 75.9; Estimated Glomerular Filt Rate > 60; Glucose Random 98 mg/dL (60-115); Potassium 3.6 mmol/L (3.3-5.1); Sodium 134 mmol/L (135-145)
[2024-07-17 07:43] VITALS: BP 147/86; PULSE 96; RESP 18; TEMP 36.8; O2SAT 95
[2024-07-17] MEDS: guaiFENesin DM 100/10/5 ML 5 ML SYRUP PO ×4 (08:31→21:17)
[2024-07-17] MEDS: TADALAFIL 5 MG 5 EACH PO (08:31)
[2024-07-17] MEDS: Lidocaine 4 % Patch ADH..PATCH 1 PATCH TRANSDERMA (08:31)
[2024-07-17] MEDS: 0.9 % Sodium Chloride Flush 3 ML SYRINGE IVFLUSH ×3 (08:38→21:17)
[2024-07-17 11:06] LABS: Adenovirus F 40/41 Not Detected (Not Detect.); Astrovirus Not Detected (Not Detect.); Campylobacter Not Detected (Not Detect.); Cryptosporidium Not Detected (Not Detect.); Cyclospora cayetanensis Not Detected (Not Detect.); E. coli EAEC Not Detected (Not Detect.); E. coli EPEC Not Detected (Not Detect.); E. coli ETEC Not Detected (Not Detect.); E. coli STEC Not Detected (Not Detect.); Entamoeba histolytica Not Detected (Not Detect.); Giardia lamblia Not Detected (Not Detect.); Norovirus GI/GII Not Detected (Not Detect.); Plesiomonas shigelloides Not Detected (Not Detect.); Rotavirus A Not Detected (Not Detect.); Salmonella Not Detected (Not Detect.); Sapovirus Not Detected (Not Detect.); Shigella sp./EIEC Not Detected (Not Detect.); Vibrio Not Detected (Not Detect.); Vibrio Cholerae Not Detected (Not Detect.); Yersinia enterocolitica Not Detected (Not Detect.)
[2024-07-17] MEDS: Simethicone 80 MG TAB.CHEW PO ×2 (12:30→21:22)
[2024-07-17] MEDS: oxyCODONE HCl Immed Release 5 MG TABLET PO ×2 (12:34→21:22)
--- NOTE | 2024-07-17 12:35 | MHC.CM.PN ---
Per MD rounds patient medically cleared for discharge. Physical therapy continues to recommend short term rehab. Per patient, no facility preferences. Bed offers received from 3 facilities including [facility], and [facility]. Patient declines all bed offers and declining any short term rehab at this time. Prefers to return home. [facility] accepted and can provide physical therapy services in the home. Will additionally provide TAX EVALUATOR 2-3x weekly beginning next week. Patient initially reported his housemate could assist with care until that time, and is now reporting that he cannot. Declined information on agencies that provide additional private pay DERMATOLOGY SALES REPRESENTATIVE services, stating he would never trust an agency. Declined [facility] referral, stating he would not qualify financially. States he knows 2 people who may be able to provide home care, but states he is unable to call them at this time. Patient making several other phone calls throughout the day. Patient requesting rx for walker, wheelchair, toilet riser and commode. MD aware. IMM, detailed notice of discharge and HINN-12 delivered. Patient refusing to sign HINN-12. Additional CM witness present. Patient reports that he intends to appeal discharge. CM classification case manager aware.
--- NOTE | 2024-07-17 13:05 | P.DS_ITS ---
DS: Providers Provider Date of Service: 07/17/24 Date of admission: 07/14/24 03:32 Primary care physician: Maria Elena Jeffery MD DS: Diagnosis Discharge Diagnosis (1) Elevated CK: Status: Acute (2) Fall: Status: Acute (3) Pulmonary nodule: Status: Acute (4) Bronchiectasis: Status: Acute DS: Summary Hospital Course Hospital Course: History of presenting illness: Date of Service: 07/14/24 Chief Complaint: Weakness, cough This is a 74-year-old male with pertinent history of PE on Eliquis, bronchiectasis, prostate cancer, colon cancer status post hemicolectomy, lymphoma, tadalafil who presents to the emergency department for evaluation of weakness and cough. Patient states he fell 2 days prior to presentation while walking his dog. On the day of presentation, he was feeling weak and it took him 2 hours to change in the bathroom. He also complains of cough with purulent sputum production. States he has had a cough for a while but recent change in cough frequency. No fever, chills, palpitations, shortness of breath, abdominal pain, changes in urinary or bowel habits. Patient fell on his left side and is having left-sided rib pain. In the emergency department, patient was found to be septic and imaging concerning for right-sided pneumonia. 74-year-old male with pertinent history of PE on Eliquis, bronchiectasis, prostate cancer, colon cancer status post hemicolectomy, lymphoma, tadalafil who presents to the emergency department for evaluation of weakness and cough, and fell at home on left side and was unable to get up , in the ED patient noted to have mild tachycardia, CT chest showed benign stable calcified and non calcified nodules some on the right upper lobe showed tree-in-bud arrangements suggesting small airway or small vessel disease secondary to an infectious or inflammatory process, no new infiltrate was noted, patient admitted to medical floor with a diagnosis of : Sepsis due to acute exacerbation of bronchiectasis and possible pneumonia treated with IV Levaquin, cough medications,blood cultures showed no growth, oxygenation remains stable, WBC normalized, since patient is hemodynamically stable, he is recommended to take by mouth Levaquin to finish a total 5 day course of antibiotic is encouraged to use incentive spirometry. In regard to weakness and fall with left-sided chest pain, no acute fractures were noted, likely muscular pain, with elevated CK 1109, treated with IV fluids CK improved to 533 patient treated with analgesics, muscle relaxers And cough medicines has good pain control, encouraged to use incentive spirometry seen by Physical therapy they recommended short-term rehab however patient declined rehab due to concern of COVID, therefore wishes to be discharged home with services, during the course of hospitalization noted to have loose stools, C diff negative treated with Imodium with good response, no recurrent diarrhea noted History of pulmonary embolism recommend to continue Eliquis. BPH continue home medications. Time Attestation Discharge Coordination Time (in mins): 40 Quality: Safe Use of Opioids Does Pt have an Active Cancer Diagnosis on the Problem List?: No Quality: Stroke Does the patient have a stroke diagnosis?: No Physical Exam Vital Signs: Vital Signs: Last Vital Signs Temp 98.3 F 07/17/24 07:43 Pulse 96 07/17/24 07:43 Resp 18 07/17/24 07:43 BP 147/86 H 07/17/24 07:43 Pulse Ox 95 07/17/24 07:43 O2 Del Method Room Air 07/17/24 07:43 BMI result Body Mass Index 19.7 Const: Other: General awake alert x3, in no acute distress. Neck no JVD. CVS regular rate rhythm, Respiratory lungs clear to auscultation, no respiratory distress, diminished Gastrointestinal abdomen soft, non tender, bowel sounds audible, no guarding , no rigidity. Extremities no edema. Neuro non focal Skin no rash Appropriate affect DS: Data Data Completed and Pending Labs on day of discharge: Laboratory Results - last 24 hr 07/17/24 07/17/24 06:33 08:09 WBC 7.5 RBC 4.41 L Hgb 12.8 L Hct 37.6 L MCV 85.3 MCH 29.0 MCHC 34.0 RDW 13.1 Plt Count 175 MPV 9.3 L Absolute Nucleated RBC 0.000 Nucleated RBC % (auto) 0.0 Sodium 134 L Potassium 3.6 Chloride 103 Carbon Dioxide 24 Anion Gap 11 L BUN 13 Creatinine 0.73 Estim Creat Clear Calc 75.9 Estimated GFR > 60 Random Glucose 98 Calcium 8.6 Stl C. cayetanensis PCR Not Detected Stool Rotavirus A PCR Not Detected Stl Adenov F 40/41 PCR Not Detected Stool Astrovirus (PCR) Not Detected Stool Campylobacter PCR Not Detected Stool Cryptosporidium PCR Not Detected Stl Sh Tox Pr E STEC PCR Not Detected Stool E coli O157 PCR Not applicable Stl Enterotoxigenic E PCR Not Detected Stool EPEC (PCR) Not Detected Stool EAEC (PCR) Not Detected Stl E. histolytica PCR Not Detected Stool Giardia Lamblia PCR Not Detected Stl P. shigelloides PCR Not Detected Stool Salmonella PCR Not Detected Stool Sapovirus (PCR) Not Detected Stl Shigella/EIEC PCR Not Detected St Y.enterocolitica PCR Not Detected Stool Vibrio (PCR) Not Detected Stl Vibrio cholerae PCR Not Detected Stl Norovirus GI/GII PCR Not Detected Preliminary micro results at discharge 07/14/24 03:58 Blood Culture - Preliminary Blood - Venous No growth after 48 hours. 07/14/24 03:58 Blood Culture - Preliminary Blood - Venous No growth after 48 hours. Discharge Plan Discharge Anticipated Discharge Date/Time: 07/17/24 13:03 Patient Disposition: Home Health Service Discharge Diagnosis: Sepsis due to acute exacerbation of bronchiectasis/possible pneumonia Left-sided chest wall pain Mechanical fall Referrals: Maria Elena Jeffery MD [Primary Care Provider] - 1 Week Discharge Medications: New (DME) Ultra-Light Rollator Misc See Rx Instructions .Route Qty: 1 0RF Rx Instructions: As directed oxycodone 5 mg Tablet 5 mg PO Q6H PRN (Reason: Pain, Severe (Pain Scale 7-10)) Qty: 14 0RF Rx Instructions: Partial Fill upon patient request. levofloxacin 750 mg Tablet 750 mg PO Q24H Qty: 1 0RF cyclobenzaprine 5 mg Tablet 5 mg PO TID PRN (Reason: muscle pain) Qty: 20 0RF dextromethorphan-guaifenesin 10-100 mg/5 mL Syrup 10 ml PO QID PRN (Reason: cough) Qty: 237 0RF Continued acetaminophen 500 mg Tablet 500 mg PO DAILY PRN (Reason: Pain) melatonin 1 mg Tablet 1 mg PO BEDTIME Eliquis 5 mg tablet 5 mg PO Q12H tadalafil 5 mg tablet 5 mg PO DAILY Discharge Orders: Discharge Order (Routine); Ordered 07/17/24 Ordered By: Patricia Murphy Diet: Advance to usual diet Activity on Discharge: As tolerated Stand Alone Forms: Patient Portal Discharge page Print Language: [place] Island[place] Care Plan Goals: Take 1 more day of Levaquin 750 mg, take cough medication as needed for cough Continue Tylenol for mild to moderate muscular pain, and oxycodone 5 mg as needed q.6 hours for severe pain Continue incentive spirometry Being discharged with VNA and PT services Health Concerns: Continue all home medications as before Plan of Treatment: Outpatient follow-up with primary care physician call for appointment Assessment: As above
--- NOTE | 2024-07-17 13:52 | W.MHC.F2F ---
Service Date Service Date: 07/17/24 Encounter Date of encounter: 07/17/24 Reasons for Services Signs and symptoms assessed: weakness left sided rib pain Reason for group home: medication management Homebound: Leaving the home is medically contraindicated at this time without the asist of a device and/or another person due th the listed conditions above and below. Reason homebound: weakness related to hospital stay Certification: Based on the above findings, I certify that this patient is confined to the home and needs intermittent group home care, physical therapy and/or speech therapy, or continues to need occupational therapy. The patient is under my care, and I have initiated the establishment of the plan of care. The patient will be followed by a physician who will periodically review the plan of care. Time Spent With Patient Time: Total time managing care of this patient today ____ minutes.
[2024-07-17] MEDS: levoFLOXacin 750 MG TABLET PO (14:07)
[2024-07-17 15:12] VITALS: BP 141/79; PULSE 109; RESP 18; TEMP 37.2; O2SAT 94
[2024-07-17 20:00] VITALS: BP 135/79; PULSE 105; RESP 17; TEMP 37.4; O2SAT 94
[2024-07-17] MEDS: Melatonin 3 MG TABLET 1.5 MG PO (21:16)
[2024-07-18 04:00] VITALS: BP 123/76; PULSE 91; RESP 16; TEMP 37; O2SAT 94
[2024-07-18] MEDS: Apixaban 5 MG TABLET PO (05:45)
[2024-07-18 08:00] VITALS: BP 123/78; PULSE 87; RESP 16; TEMP 37.4; O2SAT 95
[2024-07-18] MEDS: guaiFENesin DM 100/10/5 ML 5 ML SYRUP PO (09:00)
[2024-07-18] MEDS: 0.9 % Sodium Chloride Flush 3 ML SYRINGE IVFLUSH (09:00)
[2024-07-18] MEDS: TADALAFIL 5 MG 5 EACH PO (09:00)
[2024-07-18] MEDS: oxyCODONE HCl Immed Release 5 MG TABLET PO (09:28)
[2024-07-18] MEDS: Acetaminophen 325 MG TABLET 650 MG PO (09:29)
[2024-07-18] MEDS: Simethicone 80 MG TAB.CHEW PO (09:38)
--- NOTE | 2024-07-18 10:14 | MHC.CM.PN ---
This junior copywriter met with patient along w/ CM b2b sales manager, Valerie Diez. Goal of meeting was to determine d/c plan with patient. Patient confirmed that he was going to be going home and would need ambulance for transport. Verbalized acceptance of services from [facility]. Requested script for DME- walker, comod, toilet riser. To note patient was provided w/ IMM, HINN and DND and as of midnight 07/18/24 he did not appeal discharge. Plan communicated to CM, and ambulance will be booked for d/c 07/18/24
--- NOTE | 2024-07-18 10:23 | PC.NURSE ---
tadalafil from home returned to patient
--- NOTE | 2024-07-18 10:31 | MHC.CM.PN ---
Per MD patient remains medically cleared for dc. Patient will receive services through [facility] including: prison, physical therapy and CHEF 2x/wk. Services will begin next week. Patient is aware. S transport booked for 10:30am. MD ORLIN and patient aware.
== END 2024-07-18 11:03 | disposition home health service (06) | DRG 871 ==
LOC: HO.ED 07-14 02:27 → HO.EDOVER 07-14 03:36 → HO.S3 07-14 18:37
PROVIDERS: Nurse Practitioner Acute Care; Physician Assistant Medical; Admitting Provider Student in an Organized Health Care Education/Training Program; Emergency Provider Emergency Medicine Emergency Medical Services; PCP Student in an Organized Health Care Education/Training Program; Visit Provider Hospitalist
DX: A41.9 Sepsis, unspecified organism (principal); J18.9 Pneumonia, unspecified organism; J47.0 Bronchiectasis with acute lower respiratory infection; K52.1 Toxic gastroenteritis and colitis; T36.95XA Adverse effect of unspecified systemic antibiotic, initial encounter; R91.1 Solitary pulmonary nodule; J47.1 Bronchiectasis with (acute) exacerbation; N40.0 Benign prostatic hyperplasia without lower urinary tract symptoms; T79.6XXA Traumatic ischemia of muscle, initial encounter; W19.XXXA Unspecified fall, initial encounter; Z20.822 Contact with and (suspected) exposure to COVID-19; Z85.038 Personal history of other malignant neoplasm of large intestine; Z85.46 Personal history of malignant neoplasm of prostate; Z86.711 Personal history of pulmonary embolism; Z87.891 Personal history of nicotine dependence; Z79.01 Long term (current) use of anticoagulants; Z79.899 Other long term (current) drug therapy
CPT/HCPCS: 0241U; 36415; 70450; 71250; 72125; 80048; 80053; 81001; 82550; 83605; 83735; 84484; 85025; 85027; 85610; 85730; 87040; 87493; 87507; 93005; 97110; 97116; 97162; 97530; 99285; J0696; J1956; J2270; J7120

== ENCOUNTER → 2024-07-14 03:32 | Outpatient (BNV) | payer MEDICARE, SELFPAY | PROVIDERS: Admitting Provider Student in an Organized Health Care Education/Training Program; Emergency Provider Emergency Medicine Emergency Medical Services; PCP Student in an Organized Health Care Education/Training Program; Visit Provider Student in an Organized Health Care Education/Training Program | DX: A41.9 Sepsis, unspecified organism (principal); J47.1 Bronchiectasis with (acute) exacerbation; R91.1 Solitary pulmonary nodule; R74.8 Abnormal levels of other serum enzymes; W19.XXXA Unspecified fall, initial encounter | CPT/HCPCS: 99222; 99232; 99239; 99499; G0180 ==

== ENCOUNTER 2025-02-09 14:41 | Outpatient (AMB) | payer MEDICARE, SELFPAY ==
--- NOTE | 2025-02-09 15:19 | A.OFFVIS_ITS ---
Vital Signs 02/09/25 15:20 Height 5 ft 5 in Weight 153 lb 3.54 oz BMI 25.5 BP 128/70 Blood Pressure Location Rt brachial Position Sitting Pulse 88 Pulse Source Pulse Oximeter Pulse Oximetry (%) 97 Oxygen Delivery Method Room Air Intake Visit Reasons: Pulmonary embolism Allergies No Known Allergies Allergy (Verified 02/09/25 15:26) HPI Comments Details: The patient is a 74-year-old gentleman with very complicated past medical history including lymphoma, colon cancer, prostate cancer skin cancer and now with a recent pulmonary embolism pneumonia. 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 It then transformed to a more aggressive lymphoma any required chemotherapy at [facility] in [place]. He tolerated a very aggressive cocktail on chemotherapy any did well. Unfortunately he had increased inguinal lymph node that was biopsy in suggest that he was some so residual lymphoma. I which point he was started on rituximab. He did have any significant improvement with rituximab in therefore his chemotherapy was discontinued. He still follows closely with Oncology. After that the patient was diagnosed colon cancer requiring resection and being monitored closely for his prostate and also some basal cell carcinoma of the skin. Apparently the patient was in usual state health when he fell and injured his chest area. Started complaining of some left-sided chest pain quickly after the fall and then migrated to the right side. He noticed increased shortness of breath. His neighbor was concerned and therefore the call the ambulance for him he was taken to [facility] for further evaluation. There he had a CT scan of the chest PE protocol which I reviewed with him demonstrating multiple pulmonary emboli including the right mainstem artery, right upper lobe left upper lobe and right lower lobe segments. No evidence of any heart strain that could be appreciated. although the CT scan also demonstrated airspace disease with areas of consolidations and also ground-glass opacities. Based on the reported sure this is in the same distribution to suggest that these are pulmonary infarcts. The patient was placed on Eliquis. He was also treated for sepsis and given antibiotics for the possible pneumonia. She was discharged around January 2022. For the last few months he continues to be short of breath. Explained to the patient that the clots were still present and slowly his body reason down further. He is not using oxygen and his ox pulse ox is 98%. The patient has been now more than 3 months from his episode of pulmonary emboli so therefore the plasma is begun. Will go ahead and perform a repeat CT scan to address the pulmonary emboli and also the parenchymal involvement. He does complaint of a hacky cough. He has been using Mucinex. Will try some Tessalon Perles. 07/03/2022 the patient is here for a pulmonary follow-up visit. Overall he is feeling a little better. The cough is better. He never use the Tessalon Perles because of concerns of adverse effects. He continues on the Eliquis. He did have a repeat CTA demonstrating resolution of the pulmonary emboli which is reassuring. It also demonstrated improvement of the basilar airspace disease. He still has areas of tree in bud in addition to bronchiectatic changes. Also appears to have a tubular opacification of an airway. Is not clear if he had this previously. There appears to be some component of airway disease. But at this point he is relatively stable without significant symptoms. Need to consider smoldering infection specially after using Rituxan which could potentially result in immunodeficiencies. Will request CT scans from [facility] in addition to [facility] in order to compare the airspace disease. We also did review his blood work which was reassuring without any evidence of any vasculitis or connective tissue diseases to explain his findings. The patient had negative COVID antibodies to suggest that this was not related to COVID. Patient also had been tested negative for COVID during the time of the pulmonary emboli in the airspace disease. The patient also underwent pulmonary function studies demonstrating no evidence of any obstructive nor restrictive ventilatory defects. However, patient did have a moderate tonight to severe isolated diffusion impairment. Therefore, need to consider underlying pulmonary vascular conditions Especially with his recent thromboembolic disease. Will continue to monitor his progress. 09/28/2022 the patient is here for a pulmonary follow-up visit. Overall he continues to do well. Denies any significant shortness of breath with activity. Mild in severity. He does have a cough. Typically is hard to expectorate. He uses guaifenesin a regular basis. This is partially helpful. the patient does have findings of bronchiectasis on previous CT scans. He has also had treating budding. We did review his CT scan from [address] scan from the spring and a CT scan from 2019. on his most recent CT scan he does have some residual scarring that was left over after having the significant pulmonary infarcts. No evidence of any blood clots on the CT scan in the patient did have what appeared to be elongated density in the right middle lobe area which appears to be somewhat of endobronchial process. We did look back to the CT scan the had initially diagnosed in him with the pulmonary emboli back in January which demonstrated the area but possibly little bit small and with. And we did look at the CAT scanning and from 2019 demonstrating that that density was not there. We talked about the importance of chest physical therapy. The patient does have bronchiectasis so therefore prior pride him with a nebulizer and provide with hypertonic saline and Acapella valve for chest PT and bronchopulmonary hygiene. I am hopeful that we can clear this area. In view of the interval increase in the nodular density the patient should have a repeat CT scan. Will request that during his next visit. The patient also is concerned about his cardiac status. He did have extensive pulmonary emboli with evidence of cardiac strain on the CT scan. Therefore will request an echocardiogram to assess his RV function. in regards of his anticoagulation he tolerates the Eliquis very well. No adverse effects. based on unprovoked event the patient should continue lifelong anticoagulation. ultimately if he decides not to continue with lifelong anticoagulation then I will recommend monitoring his D- dimer once he stops the therapy. However, with this history of lung cancer in his very severe thrombotic event I would believe that continuing the therapy would be the best option specially if he does not have any significant adverse effects. 12/29/2022 the patient is here for a pulmonary follow-up visit. The patient overall is doing well. He does have his nebulizer and Acapella valve although he has not been able to start using because he does not use it. Will make sure he has a nursing visit available in order for him to be instruction how to use it effectively. In the meantime the patient feels better overall. We did review his last CT scan of the chest from June 2022 demonstrating the abnormal nodular density. He did not have that in the past. Therefore will go ahead and repeat the CT scan in June of 2023 to make sure has not progressed in size. He does continue with the Eliquis. The Eliquis he is tolerating without any minor or major side effects. Therefore will continue it for now. He did have an unprovoked clot in does have a history of cancer so therefore lifelong anticoagulation we best. At some point we can also consider decreasing the medication to the prophylactic dose. Will discuss that further during the next visit. 08/16/2023 the patient is here for a pulmonary follow-up visit. Overall the patient has been doing well from a respiratory status. Denies any significant shortness of breath or chest pains or cough. Denies any hemoptysis. He has been tolerating the Eliquis 5 mg twice a day. The patient did have a repeat CT scan of the chest which was personally by me. I also reviewed with him the CT scan from 2018 in 2022. demonstrating significant improvement of the masslike densities that he had both in the right upper lobe and also the bilateral lung zones. He is left with remnants of scarring. He still has pulmonary nodules. Also has the mucocele in the right middle lobe area. This appears to be not changed. Overall his CT scan is reassuring. We again talked about considering a lower dose Eliquis now that he has been treated for his condition. Although he rather just continue taking the 5 mg twice a day since he is not having any adverse effects. Will continue discussing the topic. At this point with the improvement in his imaging studies we will hold off on the additional CT scans at this time. Will follow-up in 6 months in the meantime the patient does not have any running water. He is hopeful that he can get the water fixed in the coming weeks. Once he does he is going to start using his nebulizer again with hypertonic saline along with the Acapella valve for chest physical therapy. This will be very important for him to do in order for mucus clearing specially with the tree-in-bud changes the mucocele changes along with just healthy bronchopulmonary hygiene. The patient follow-up in 6 months and will continue to reassess his progress. 05/29/2024 the patient is here for a pulmonary follow-up visit. The patient overall doing well from a respiratory status. He denies any shortness of breath or cough or chest pain. He denies any hemoptysis. He continues on the Eliquis 5 mg p.o. b.i.d.. He denies any minor major bleeding with the Eliquis. He is pretty happy with that dose. Although he knows that at this point he could sick way down to the lower dose of prophylactic dose of Eliquis 2.5 twice a day. The patient has last CT scan was back in 08/01/2023 which we personally reviewed together. He does have stable nodular densities. No evidence of any worsening disease. Therefore, the patient does not need any serial imaging studies from a CAT scan standpoint. However, on exam he does have some crackles at the left base. The scarring that we can appreciate on his CT scan is primarily on the right base. So therefore he is going to undergo a chest x-ray. His any worsening of disease we can consider additional imaging studies in the future. The patient is also working with a dentist. The patient needs to have a lot of dental work done. For now he is able to stop the Eliquis 3 days before and he can stop the Eliquis 2 days after the procedure. No bridge therapy warranted. The patient is also followed closely with Hematology Oncology. This is a right now he is stable. They will continue to monitor him closely 02/09/2025 the patient is here for a pulmonary follow-up visit. Since we last spoke the patient had a bad fall walking a dog. Develops significant left-sided chest discomfort. He could barely move. He spent couple days in his house by himself and he did not have any help. Ultimately his house may found him and called the ambulance. He was brought to the [facility] where he was initially evaluated. The patient did have a CT scan of the chest which I personally reviewed. Although did not see any rib fractures I did count 3 fractured ribs on the left hemithorax. No pneumothorax or effusion. The patient did have some contusion of the lung as well. As far as his pulmonary nodules have been monitoring closely the has not changed. Appears to be some mucus plugging. He was supposed to be using the nebulizer in the flutter valve but he has not used it. He is motivated and wants to start using it. We also talked about deep breathing exercises since he has some atelectasis at the left base after his accident. As far as his blood thinners the patient did have an unprovoked blood clot PE bilaterally was pretty extensive. He has been on Eliquis now for about 3 years. We spoke about decreasing the Eliquis to the prophylactic dose at this point it is very reasonable to do so. Specially since he is high risk for falls at this time. Therefore I did send a script for 2.5 mg of Eliquis twice a day. Patient will return 6 months if he has any issues prior to that he will call for an earlier assessment. [facility] Medical History (Updated 02/09/25 @ 15:58 by Keny Irizarry MD) Rib fractures Pulmonary nodule Bronchiectasis Colon cancer Prostate CA Pneumonia Social History Household Members: Other Household Members Other:: roommate Housing: House Do you presently have visiting nurse or other home services: No Patient Tobacco Use Status: Former Tobacco user Tobacco use type: Cigarette Years Smoked: 25 Years service: No Review of Systems Const Denies fever(s), Denies night sweats and Denies weight loss Eyes Reports no additional complaints ENT Denies change in voice Card Denies chest pain and Denies dyspnea on exertion Resp Reports cough, Denies dyspnea on exertion and Denies wheezing GI Reports no additional complaints Musc Reports no additional complaints Skin/Breast Denies rash Neuro Reports no additional complaints Aller/Immun Denies wheezing Physical Exam Vital Signs: Last Vital Signs Pulse 88 02/09/25 15:20 BP 128/70 02/09/25 15:20 Pulse Ox 97 02/09/25 15:20 Oxygen Delivery Method Room Air 02/09/25 15:20 BMI result Body Mass Index 25.5 Const General: comfortable HEENT Head: Yes normal to inspection Eyes General: appearance normal, both eyes and all related structures Neck Neck: Yes supple Chest Chest palpation & inspection: normal inspection of the chest Resp Effort & Inspection: normal respiratory effort and able to speak in complete sentences Auscultation: diminished lung sounds Cardio Rate: regular rate Rhythm: regular rhythm Heart sounds: S1 normal heart sound present and S2 normal heart sound present Skin Rashes: rashes noted (likely insect bites on his right upper back area.) Extrem General: Yes no clubbing, cyanosis or edema Assessment & Plan Assessment & Plan (1) Pulmonary emboli: Comment: unprovoked, life long antigoagulation Code(s): I26.99 - Other pulmonary embolism without acute cor pulmonale Category: Medical Qualifiers: Pulmonary embolism type: single subsegmental (without acute cor pulmonale) Qualified Code(s): I26.93 - Single subsegmental pulmonary embolism without acute cor pulmonale (2) Cough: Comment: better Code(s): R05.9 - Cough, unspecified Category: Medical Qualifiers: Cough type: chronic Qualified Code(s): R05.3 - Chronic cough (3) Bronchiectasis: Code(s): J47.9 - Bronchiectasis, uncomplicated Category: Medical Qualifiers: Bronchiectasis type: uncomplicated Qualified Code(s): J47.9 - Bronchiectasis, uncomplicated (4) Pulmonary nodule: Code(s): R91.1 - Solitary pulmonary nodule Category: Medical (5) Rib fractures: Code(s): S22.49XA - Multiple fractures of ribs, unspecified side, initial encounter for closed fracture Category: Medical Qualifiers: Encounter type: sequela Fracture type: closed Laterality: left Qualified Code(s): S22.42XS - Multiple fractures of ribs, left side, sequela Plan Decreasing to 2.5mg BID ISS/deep breathing exercises acapella valve for CPT Nebulizer therapy as needed follow-up in 6-8 months Medications: New apixaban (Eliquis) 2.5 mg PO BID 60 tabs 11RF 30 days Coding Level of Care Code Est Pt Level 4 (65230) Complex EM visit Add On G2211 Diagnoses Single subsegmental pulmonary embolism without acute cor pulmonale I26.93 Pulmonary embolism type: single subsegmental (without acute cor pulmonale) Chronic cough R05.3 Cough type: chronic Bronchiectasis without complication J47.9 Bronchiectasis type: uncomplicated Pulmonary nodule R91.1 Closed fracture of multiple ribs of left side, sequela S22.42XS Encounter type: sequela Fracture type: closed Laterality: left Time Spent (min) 30
[2025-02-09 15:20] VITALS: BP 128/70; PULSE 88; O2SAT 97; BMI 25.5
--- OUTSIDE RECORDS SUMMARY | 2025-02-09 16:37 | XMS_ITS | Clinical Summary ---
Author Organization [facility] Address [address] [place] [address] Care Team Providers Care Poured Wall Foreman Name Role Phone Que Garcia MD Primary Care Provider [phone] Allergies Active Allergy Reactions Criticality Noted Date Comments Nitratest Paper 08/11/2019 Other Reaction(s): Other (See Comments) flushing Medications tadalafiL (CIALIS) 5 mg tablet Take 1 tablet (5 mg total) by mouth 1 (one) time each day. 3 Active dextromethorpha n-guaiFENesin (ROBITUSSIN-DM) 10-100 mg/5 mL syrup Take 5-10 mL by mouth every 6 hours as needed. 2 Active ciclopirox 1 % shampoo Apply 1 application topically once a week. gently massage into affected areas and surrounding skin 1 Active apixaban (Eliquis) 5 mg tablet Take 1 tablet (5 mg total) by mouth every 12 hours. 3 Active acyclovir (ZOVIRAX) 400 mg tablet Take 1 tablet (400 mg total) by mouth 2 (two) times a day. 3 Active ascorbic acid (VITAMIN C) 500 mg tablet Take 500 mg by mouth 2 (two) times a day. Active Active Problems Problem Noted Date Diagnosed Date Diarrhea 02/11/2022 Anxiety 08/11/2019 Depression 08/11/2019 GERD (gastroesophageal reflux disease) 9 Lipoma 08/11/2019 Peripheral neuropathy 08/11/2019 Follicular lymphoma grade 3a 08/08/2019 Immunizations Name Administration Dates Next Due Influenza Quadravalent, 0.5m l (Fluzone High-dose) 65yo and older 08/11/2022 Influenza trivalent, 0.5mL ( Fluzone High-dose) 65yo and older 08/25/2019 Medical History Medical History Date Comments Skin cancer DX:Skin cancer;C OMMENT:basal cell carcinoma Colon cancer (CMS/HCC) 08/20/2014 DX:Colon cancer (HCC);COMMENT:right hemicolectomy Diffuse large B cell lymphoma DX :Diffuse large B cell lymphoma (HCC) Prostate cancer (CMS/HCC) DX:Pro state cancer (HCC) Family History Medical History Relation Name Comments No Known Problems Father No Known Problems Mother Relation Name Status Comments Father Mother Social History Tobacco Use Types Packs/Day Years Used Date Smoking Tobacco: Former Cigarettes Q uit: 11/12/1999 Smokeless Tobacco: Never Alcohol Use Standard Drinks/Week Comments No 0 (1 standard drink = 0.6 oz pur e alcohol) Sex and Gender Information Value Date Recorded Sex Assigned at Not on file Legal Sex Male 5:10 AM EST Gender Identity Not on file Sexual Orientation Not on file Obstetrics History Last Filed Vital Signs Vital Sign Reading Time Taken Comments Blood Pressure 147/88 06/15/2023 1:15 PM EDT Sitting Right arm Pulse 102 06/15/2023 1:15 PM EDT Temperature - - Respiratory Rate - - Oxygen Saturation - - Inhaled Oxygen Concentration - - Weight 65.8 kg (145 lb) 06/15/2023 1:15 PM EDT Height 172.7 cm (5' 8 ) 07/18/2022 3:2 3 PM EDT Body Mass Index 22.05 07/18/2022 3:23 PM EDT Plan of Treatment Health Maintenance Due Date Last Done Comments DTaP,Tdap,and Td Vaccines (1 - Tdap) 1969 Pneumococcal Vaccine: 50+ Years (1 of 2 - PCV) 1969 Zoster Vaccines (1 of 2) 1969 Abdominal Aortic Aneurysm (AAA) Screen 10/20/2022 Depression Screening 10/20/2022 Falls Risk Assessment 10/20/2022 Social Influencers of Health Screening 10/20/2022 RSV Immunization Patients 60+ Years Old (1 - 1-dose 75+ series) 2023 COVID-19 Vaccine ( season) 2024 09/02/2024, 11/09/2023, 08/24/2021, Additional history exists Hypertension/CHF/CAD Annual BMP Blood Test 04/02/2025 04/02/2024, 06/15/2023, 03/14/2023, Additional history exists Medicare Annual Wellness Visit 04/08/2025 04/08/2024 Cholesterol Screening (Lipid Panel) 07/13/2025 07/13/2020, 07/13/2020 Hepatitis C Screening Completed 08/18/2019 Influenza Vaccine Completed 10/01/2024, , 08/11/2022, Additional history exists HIB Vaccines Aged Out No longer eligi ble based on patient's age to complete this topic HPV Vaccines Aged Out No longer eligi ble based on patient's age to complete this topic Hepatitis A Vaccines Aged Out No long er eligible based on patient's age to complete this topic Hepatitis B Vaccines Aged Out No long er eligible based on patient's age to complete this topic IPV Vaccines Aged Out No longer eligi ble based on patient's age to complete this topic MMR Vaccines Aged Out No longer eligi ble based on patient's age to complete this topic Meningococcal ACWY Vaccine Aged Out N o longer eligible based on patient's age to complete this topic Meningococcal B Vacine Aged Out No lo nger eligible based on patient's age to complete this topic RSV Immunization Patients Under 20 months Aged Out No longer eligible based on patient's age to complete this topic Varicella Vaccines Aged Out No longer eligible based on patient's age to complete this topic Procedures Procedure Name Priority Date/Time Associated Diagnosis Comments ANNUAL BMP BLOOD TEST Routine 04/02/2024 LIPID PANEL Routine 07/13/2020 HEPATITIS C SCREENING Routine 08/18/2019 from Last 3 Months or Most Recently Relevant to Health Maintenance Results * Annual BMP Blood Test (04/02/2024) Pathologist [facility] Annual BMP Blood Test abstracted us Historical Provider HEALTH MAINTENANCE Final Result * (ABNORMAL) Lipid panel (07/13/2020) Triglycerides 174(A) <=150 mg/dL Cholesterol 237(A) 0 - 200 mg/dL HDL 60 32 - 70 mg/dL LDL Cholesterol 142(A) 50 - 130 mg/dL Blood Venous blood specimen / Unknown Historical Provider LAB BLOOD ORDERABLES [place] Result * Hepatitis C Screening (08/18/2019) Hepatitis C Screening abstracted Historical Provider HEALTH MAINTENANCE Final Result from Last 3 Months or Most Recently Relevant to Health Maintenance Care Teams Poured Wall Foreman Relationship Specialty Start Date End Date Que Garcia MD PCP - General 03/16/22
--- OUTSIDE RECORDS SUMMARY | 2025-02-09 16:37 | XMS_ITS | Clinical Summary ---
Author Organization Formerly [facility] Address [address] [place] [address] Care Team Providers Care Hedis Coordinator Name Role Phone Que Garcia MD Primary Care Provider Unavailab le Allergies Active Allergy Reactions Criticality Noted Date Comments Nitrates, Organic Other (See Comments) 08/11/20 19 flushing Medications Medication Sig Dispensed Refills Start Date End Date Status vitamin C (ASCORBIC ACID) 500 MG tablet Take 500 mg by mouth 2 (two) times a day. 0 Active Ciclopirox 1 % shampooIndications: Seborrheic dermatitis of scalp Apply 1 application topically once a week. gently massage into affected areas and surrounding skin 120 mL 1 04/13/2021 Active guaiFENesin-dextrom ethorphan (ROBITUSSIN DM) 100-10 MG/5ML syrup Take 5-10 mL by mouth every 6 (six) hours as needed for cough. 118 mL 0 02/12/2022 Active acyclovir (ZOVIRAX) 400 MG tablet TAKE 1 TABLET BY MOUTH 2 TIMES A DAY 60 tablet 0 02/14/2023 Active Eliquis 5 MG TABS tabletIndications:A cute pulmonary embolism, unspecified pulmonary embolism type, unspecified whether acute cor pulmonale present (HCC) TAKE 1 TABLET BY MOUTH EVERY 12 HOURS 60 tablet 5 10/25/2023 Active tadalafil (CIALIS) 5 MG tabletIndications:E rectile dysfunction, unspecified erectile dysfunction type TAKE ONE TABLET BY MOUTH EVERY DAY 90 tablet 1 10/25/2023 Active Active Problems Problem Noted Date Diagnosed Date Diarrhea 02/11/2022 Depression 08/11/2019 Anxiety 08/11/2019 GERD (gastroesophageal reflux disease) 9 Peripheral neuropathy 08/11/2019 Lipoma 08/11/2019 Follicular lymphoma grade 3a 08/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 Immunizations Name Administration Dates Next Due Covid-19 (Pfizer) Ready To Use 08/24/2021,2020,02/01/2021 Influenza Quad (High Dose Fl uzone) 0.7mL >65Yrs (HD-IIV4) 08/11/2022 Influenza Trivalent (Fluzone High Dose) 0.7 mL (65yrs &>) 08/25/2019 Family History Medical History Relation Name Comments No Sig Med Hx Father No Sig Med Hx Mother Relation Name Status Comments Father Mother Social History Tobacco Use Types Packs/Day Years Used Date Smoking Tobacco: Former Cigarettes Q uit: 2000 Smokeless Tobacco: Never Alcohol Use Standard Drinks/Week Comments No 0 (1 standard drink = 0.6 oz pur e alcohol) Sex and Gender Information Value Date Recorded Sex Assigned at Male 08/08/2019 1:35 PM EDT Gender Identity Not on file Sexual Orientation Not on file Job Start Date Occupation Industry Not on file Not on file Not on file Last Filed Vital Signs Vital Sign Reading Time Taken Comments Blood Pressure 147/88 06/15/2023 1:15 PM EDT Pulse 102 06/15/2023 1:15 PM EDT Temperature 36.5 ??C (97.7 ??F) 06/15/2023 1:15 PM ED T Respiratory Rate 18 06/15/2023 1:15 PM EDT Oxygen Saturation 99% 06/15/2023 1:15 PM EDT Inhaled Oxygen Concentration - - Weight 65.8 kg (145 lb) 06/15/2023 1:15 PM EDT Height 172.7 cm (5' 8 ) 07/18/2022 3:23 PM EDT Body Mass Index 22.05 07/18/2022 3:23 PM EDT Plan of Treatment Health Maintenance Due Date Last Done Comments Pneumococcal Vaccine (1 of 2 - PCV) 1954 Depression Screening 1960 Preventative Health Evaluation 1966 Fall Risk Assessment 2013 COVID-19 Vaccine ( season) 2024 02/10/2023, 08/25/2021, 08/24/2021, Additional history exists Influenza Vaccine (#1) 2024 3, 08/11/2022, 08/12/2021, Additional history exists DTap / Tdap / Td (2 - Td or Tdap) 07/09/2030 07/09/2020 Hepatitis C Screening Completed 08/18/2019 Shingrix-Zoster Vaccine Completed 11/20/19, 11/20/2019, 09/03/2019 RSV Adult > 60+ Yrs or Completed 07/30/2023 Hepatitis B Vaccines Aged Out No long er eligible based on patient's age to complete this topic RSV Ped < 20 months Aged Out No longe r eligible based on patient's age to complete this topic Advance Directives For more information, please contact: [phone] Latest Code Status on File Code Status Date Activated Date Inactivated Comments Full Code 02/11/2022 11:24 PM 02/12/2022 11:26 PM This code status was ascertained in the following way: patient Care Teams Hedis Coordinator Relationship Specialty Start Date End Date Que Garcia MD PCP - General Family Medicine 03/16/22
--- OUTSIDE RECORDS SUMMARY | 2025-02-09 16:37 | XMS_ITS | Continuity of Care Document ---
Author Organization [facility] Address [address] [address] Phone Care Team Providers Care Mortgage Closing Clerk Name Role Phone Admin, Admin Unavailable Unavailable Allergies, Adverse Reactions, Alerts Substance Reaction Status Criticality NITRATES Flushing(mild) Active No Informatio n Procedures Procedure Date REFRACTION COMPREHENSIVE EYE EXAM REFRACTION COMPREHENSIVE EYE EXAM Advance Directives Directive Yes / No Effective Date File Name No Information Encounters Encounter Description Practice Location Reason(s) For Visit Diagnoses Date Provider Providers Copied on Encounter [facility] , [address] [place] [address], [id number] , tel:[phone] Primary Care No Information Admin Admin. . [facility] , [address] [place] [address], [id number] , tel:[phone] Primary Care Near vision blur (chief complaint) Encounter for exam of blood pressure w abnormal findingsHypermetro crescencio, bilateralPresbyopi aRegular astigmatism, bilateralDiffuse large B-cell lymphoma, unspecified site 9 Maegan Tilley. [address] [place] [address], [id number], . [phone] [facility] , [address] [place] [address], [id number] , [phone] Primary Care Near vision blur (chief complaint) Encounter for exam of blood pressure w abnormal findingsHypermetro crescencio, bilateralRegular astigmatism, bilateralPresbyopi aDiffuse large B-cell lymphoma, unspecified site 201 8 No Information Family History Family Member Type Diagnosis Age At Onset No Information Payers Payer name Insurance type Covered alliance party ID Authortabathaa tikate(s) Medicare MB [id number] [facility] Healthcare Options [id number] Social History Type Description Quantity Date Captured Comments Sex Male Smoking Status No Information Chief Complaint And Reason For Visit No Information Reason For Referral Reason For Referral No Information Plan Of Treatment Date Type Action Status Referral Ordered: Blood Pressure management: Referral to doctor timeframe: 1 Month. (related to Encounter for exam of blood pressure w abnormal findings) ordered Referral Ordered: BP management: Referral to general practitioner timeframe: 1 Month. (related to Encounter for examination of blood pressure with abnormal findings) ordered History Of Present Illness Encounter Date Complaint History Of Prese nt Illness Near vision blur - Complaining o f NV blur- Longstanding blur- Wearing glasses that are 6 yo- Was not comfortable with last Rx found here > Thinks axis is off- Wants a pair for distance and one for near Near vision blur --67 YO WM pres ents for NV blur OU--Patient has been experiencing NV blur OU with correction, more so when tired, experienced for the past year and a half--h/o lymphoma since 2013, patient has been on and off chemo therapy over the past few years Functional Status Date Functional Assessmen t No Information Instructions Date Instruction Additional Infor mation Impression/Plan Related to Diffu se large B-cell lymphoma, unspecified site Impression/Plan Related to Hyper metropia, bilateral Impression/Plan Related to Presb yopia Impression/Plan Related to Regul ar astigmatism, bilateral Impression/Plan - Ne w Rx provided with updated OD. Monitor yearly. Related to Hypermetropia, bilateral Impression/Plan - see above Rela lianne to Regular astigmatism, bilateral Impression/Plan - see above Rela lianne to Presbyopia Follow up - Return i n [address] Joseph Bautista for Wellness Exam. Impression/Plan - Mo garretor yearly with DFE Related to Diffuse large B-cell lymphoma, unspecified site Impression/Plan - Fo bonifaciow up with PCP within one month. Related to Encounter for exam of blood pressure w abnormal findings Assessments Type Assessment Date No Information Patient Care Teams Name Effective Dates (start - stop) Status Members No Information
== END 2025-02-09 16:11 | disposition home or self-care (01) ==
LOC: HO.HPS 14:43
PROVIDERS: PCP Student in an Organized Health Care Education/Training Program; Visit Provider Hospitalist
DX: I26.93 Single subsegmental thrombotic pulmonary embolism without acute cor pulmonale (principal); R05.3 Chronic cough; J47.9 Bronchiectasis, uncomplicated; R91.1 Solitary pulmonary nodule; S22.42XS Multiple fractures of ribs, left side, sequela
CPT/HCPCS: 99214; G2211

== ENCOUNTER → 2025-02-09 14:41 | Outpatient (BNVA) | payer MEDICARE, SELFPAY | PROVIDERS: PCP Student in an Organized Health Care Education/Training Program; Visit Provider Hospitalist | DX: I26.99 Other pulmonary embolism without acute cor pulmonale (principal); R05.3 Chronic cough; J47.9 Bronchiectasis, uncomplicated; R91.1 Solitary pulmonary nodule; S22.42XS Multiple fractures of ribs, left side, sequela; X58.XXXS Exposure to other specified factors, sequela; W19.XXXS Unspecified fall, sequela; Z87.891 Personal history of nicotine dependence | CPT/HCPCS: 99212 ==

== ENCOUNTER 2025-10-16 15:55 | Outpatient (AMB) | payer MEDICARE, SELFPAY ==
[2025-10-16 15:56] VITALS: BP 116/64; PULSE 87; O2SAT 97
--- NOTE | 2025-10-16 15:56 | MHC.OFFVIS ---
Vital Signs 10/16/25 15:56 Height 5 ft 5 in BP 116/64 Blood Pressure Location Lt brachial Position Sitting Pulse 87 Pulse Source Pulse Oximeter Pulse Oximetry (%) 97 Oxygen Delivery Method Room Air Intake Visit Reasons: Pulmonary embolism Mri Assistant Required: No Accompanied by: Self / Same As Patient Allergies No Known Allergies Allergy (Verified 10/16/25 15:58) HPI Comments Details: The patient is a 75-year-old gentleman with very complicated past medical history including lymphoma, colon cancer, prostate cancer skin cancer and now with a recent pulmonary embolism pneumonia. 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 It then transformed to a more aggressive lymphoma any required chemotherapy at [facility] in [place]. He tolerated a very aggressive cocktail on chemotherapy any did well. Unfortunately he had increased inguinal lymph node that was biopsy in suggest that he was some so residual lymphoma. I which point he was started on rituximab. He did have any significant improvement with rituximab in therefore his chemotherapy was discontinued. He still follows closely with Oncology. After that the patient was diagnosed colon cancer requiring resection and being monitored closely for his prostate and also some basal cell carcinoma of the skin. Apparently the patient was in usual state health when he fell and injured his chest area. Started complaining of some left-sided chest pain quickly after the fall and then migrated to the right side. He noticed increased shortness of breath. His neighbor was concerned and therefore the call the ambulance for him he was taken to [facility] for further evaluation. There he had a CT scan of the chest PE protocol which I reviewed with him demonstrating multiple pulmonary emboli including the right mainstem artery, right upper lobe left upper lobe and right lower lobe segments. No evidence of any heart strain that could be appreciated. although the CT scan also demonstrated airspace disease with areas of consolidations and also ground-glass opacities. Based on the reported sure this is in the same distribution to suggest that these are pulmonary infarcts. The patient was placed on Eliquis. He was also treated for sepsis and given antibiotics for the possible pneumonia. She was discharged around January 2022. For the last few months he continues to be short of breath. Explained to the patient that the clots were still present and slowly his body reason down further. He is not using oxygen and his ox pulse ox is 98%. The patient has been now more than 3 months from his episode of pulmonary emboli so therefore the plasma is begun. Will go ahead and perform a repeat CT scan to address the pulmonary emboli and also the parenchymal involvement. He does complaint of a hacky cough. He has been using Mucinex. Will try some Tessalon Perles. 07/03/2022 the patient is here for a pulmonary follow-up visit. Overall he is feeling a little better. The cough is better. He never use the Tessalon Perles because of concerns of adverse effects. He continues on the Eliquis. He did have a repeat CTA demonstrating resolution of the pulmonary emboli which is reassuring. It also demonstrated improvement of the basilar airspace disease. He still has areas of tree in bud in addition to bronchiectatic changes. Also appears to have a tubular opacification of an airway. Is not clear if he had this previously. There appears to be some component of airway disease. But at this point he is relatively stable without significant symptoms. Need to consider smoldering infection specially after using Rituxan which could potentially result in immunodeficiencies. Will request CT scans from [facility] in addition to [facility] in order to compare the airspace disease. We also did review his blood work which was reassuring without any evidence of any vasculitis or connective tissue diseases to explain his findings. The patient had negative COVID antibodies to suggest that this was not related to COVID. Patient also had been tested negative for COVID during the time of the pulmonary emboli in the airspace disease. The patient also underwent pulmonary function studies demonstrating no evidence of any obstructive nor restrictive ventilatory defects. However, patient did have a moderate tonight to severe isolated diffusion impairment. Therefore, need to consider underlying pulmonary vascular conditions Especially with his recent thromboembolic disease. Will continue to monitor his progress. 09/28/2022 the patient is here for a pulmonary follow-up visit. Overall he continues to do well. Denies any significant shortness of breath with activity. Mild in severity. He does have a cough. Typically is hard to expectorate. He uses guaifenesin a regular basis. This is partially helpful. the patient does have findings of bronchiectasis on previous CT scans. He has also had treating budding. We did review his CT scan from [address] scan from the spring and a CT scan from 2019. on his most recent CT scan he does have some residual scarring that was left over after having the significant pulmonary infarcts. No evidence of any blood clots on the CT scan in the patient did have what appeared to be elongated density in the right middle lobe area which appears to be somewhat of endobronchial process. We did look back to the CT scan the had initially diagnosed in him with the pulmonary emboli back in January which demonstrated the area but possibly little bit small and with. And we did look at the CAT scanning and from 2019 demonstrating that that density was not there. We talked about the importance of chest physical therapy. The patient does have bronchiectasis so therefore prior pride him with a nebulizer and provide with hypertonic saline and Acapella valve for chest PT and bronchopulmonary hygiene. I am hopeful that we can clear this area. In view of the interval increase in the nodular density the patient should have a repeat CT scan. Will request that during his next visit. The patient also is concerned about his cardiac status. He did have extensive pulmonary emboli with evidence of cardiac strain on the CT scan. Therefore will request an echocardiogram to assess his RV function. in regards of his anticoagulation he tolerates the Eliquis very well. No adverse effects. based on unprovoked event the patient should continue lifelong anticoagulation. ultimately if he decides not to continue with lifelong anticoagulation then I will recommend monitoring his D-dimer once he stops the therapy. However, with this history of lung cancer in his very severe thrombotic event I would believe that continuing the therapy would be the best option specially if he does not have any significant adverse effects. 12/29/2022 the patient is here for a pulmonary follow-up visit. The patient overall is doing well. He does have his nebulizer and Acapella valve although he has not been able to start using because he does not use it. Will make sure he has a nursing visit available in order for him to be instruction how to use it effectively. In the meantime the patient feels better overall. We did review his last CT scan of the chest from June 2022 demonstrating the abnormal nodular density. He did not have that in the past. Therefore will go ahead and repeat the CT scan in June of 2023 to make sure has not progressed in size. He does continue with the Eliquis. The Eliquis he is tolerating without any minor or major side effects. Therefore will continue it for now. He did have an unprovoked clot in does have a history of cancer so therefore lifelong anticoagulation we best. At some point we can also consider decreasing the medication to the prophylactic dose. Will discuss that further during the next visit. 08/16/2023 the patient is here for a pulmonary follow-up visit. Overall the patient has been doing well from a respiratory status. Denies any significant shortness of breath or chest pains or cough. Denies any hemoptysis. He has been tolerating the Eliquis 5 mg twice a day. The patient did have a repeat CT scan of the chest which was personally by me. I also reviewed with him the CT scan from 2018 in 2022. demonstrating significant improvement of the masslike densities that he had both in the right upper lobe and also the bilateral lung zones. He is left with remnants of scarring. He still has pulmonary nodules. Also has the mucocele in the right middle lobe area. This appears to be not changed. Overall his CT scan is reassuring. We again talked about considering a lower dose Eliquis now that he has been treated for his condition. Although he rather just continue taking the 5 mg twice a day since he is not having any adverse effects. Will continue discussing the topic. At this point with the improvement in his imaging studies we will hold off on the additional CT scans at this time. Will follow-up in 6 months in the meantime the patient does not have any running water. He is hopeful that he can get the water fixed in the coming weeks. Once he does he is going to start using his nebulizer again with hypertonic saline along with the Acapella valve for chest physical therapy. This will be very important for him to do in order for mucus clearing specially with the tree-in-bud changes the mucocele changes along with just healthy bronchopulmonary hygiene. The patient follow-up in 6 months and will continue to reassess his progress. 05/29/2024 the patient is here for a pulmonary follow-up visit. The patient overall doing well from a respiratory status. He denies any shortness of breath or cough or chest pain. He denies any hemoptysis. He continues on the Eliquis 5 mg p.o. b.i.d.. He denies any minor major bleeding with the Eliquis. He is pretty happy with that dose. Although he knows that at this point he could sick way down to the lower dose of prophylactic dose of Eliquis 2.5 twice a day. The patient has last CT scan was back in 08/01/2023 which we personally reviewed together. He does have stable nodular densities. No evidence of any worsening disease. Therefore, the patient does not need any serial imaging studies from a CAT scan standpoint. However, on exam he does have some crackles at the left base. The scarring that we can appreciate on his CT scan is primarily on the right base. So therefore he is going to undergo a chest x-ray. His any worsening of disease we can consider additional imaging studies in the future. The patient is also working with a dentist. The patient needs to have a lot of dental work done. For now he is able to stop the Eliquis 3 days before and he can stop the Eliquis 2 days after the procedure. No bridge therapy warranted. The patient is also followed closely with Hematology Oncology. This is a right now he is stable. They will continue to monitor him closely 02/09/2025 the patient is here for a pulmonary follow-up visit. Since we last spoke the patient had a bad fall walking a dog. Develops significant left-sided chest discomfort. He could barely move. He spent couple days in his house by himself and he did not have any help. Ultimately his house may found him and called the ambulance. He was [facility] the [facility] where he was initially evaluated. The patient did have a CT scan of the chest which I personally reviewed. Although did not see any rib fractures I did count 3 fractured ribs on the left hemithorax. No pneumothorax or effusion. The patient did have some contusion of the lung as well. As far as his pulmonary nodules have been monitoring closely the has not changed. Appears to be some mucus plugging. He was supposed to be using the nebulizer in the flutter valve but he has not used it. He is motivated and wants to start using it. We also talked about deep breathing exercises since he has some atelectasis at the left base after his accident. As far as his blood thinners the patient did have an unprovoked blood clot PE bilaterally was pretty extensive. He has been on Eliquis now for about 3 years. We spoke about decreasing the Eliquis to the prophylactic dose at this point it is very reasonable to do so. Specially since he is high risk for falls at this time. Therefore I did send a script for 2.5 mg of Eliquis twice a day. Patient will return 6 months if he has any issues prior to that he will call for an earlier assessment. 10/16/2025 the patient is here for pulmonary follow-up visit. The patient overall has been doing well. His chest discomfort from the rib fractures have healed. He is also tolerating the low-dose Eliquis 2.5 mg twice a day. The patient does have risk for hypercoagulable state because of his history of cancer and also because of his unprovoked PE. Therefore he should stay on lifelong anticoagulation at this time unless he develops any contraindications. The patient does have underlying pulmonary nodules. His last CAT scan was back in July 2024. In view of his history of cancer also with an elevated PSA will go ahead and repeat a CAT scan to follow up his pulmonary nodules in 4 months. Have him follow-up after that. If he develops any respiratory issues prior to that he can always call. Also of note he did have inguinal surgery. His lungs sound good. He did do the incentive spirometry afterwards. I did encourage him to walk and deep breathe and at this point he does not need the incentive spirometer anymore. [facility] Medical History (Updated 10/16/25 @ 16:14 by Keny Irizarry MD) Pulmonary fibrosis Rib fractures Pulmonary nodule Bronchiectasis Colon cancer Prostate CA Pneumonia Social History Household Members: Other Household Members Other:: roommate Housing: House Do you presently have visiting nurse or other home services: No Patient Tobacco Use Status: Former Tobacco user Tobacco use type: Cigarette Years Smoked: 25 Years service: No Review of Systems Const Denies fever(s), Denies night sweats and Denies weight loss Eyes Reports no additional complaints ENT Denies change in voice Card Denies chest pain and Denies dyspnea on exertion Resp Reports cough, Denies dyspnea on exertion and Denies wheezing GI Reports no additional complaints Musc Reports no additional complaints Skin/Breast Denies rash Neuro Reports no additional complaints Aller/Immun Denies wheezing Physical Exam Vital Signs: Last Vital Signs Pulse 87 10/16/25 15:56 BP 116/64 10/16/25 15:56 Pulse Ox 97 10/16/25 15:56 Oxygen Delivery Method Room Air 10/16/25 15:56 Const General: comfortable HEENT Head: Yes normal to inspection Eyes General: appearance normal, both eyes and all related structures Neck Neck: Yes supple Chest Chest palpation & inspection: normal inspection of the chest Resp Effort & Inspection: normal respiratory effort and able to speak in complete sentences Auscultation: diminished lung sounds Cardio Rate: regular rate Rhythm: regular rhythm Heart sounds: S1 normal heart sound present and S2 normal heart sound present Skin Rashes: rashes noted (likely insect bites on his right upper back area.) Extrem General: Yes no clubbing, cyanosis or edema Assessment & Plan Assessment & Plan (1) Pulmonary emboli: Comment: unprovoked, life long antigoagulation Code(s): I26.99 - Other pulmonary embolism without acute cor pulmonale Category: Medical Qualifiers: Pulmonary embolism type: single subsegmental (without acute cor pulmonale) Qualified Code(s): I26.93 - Single subsegmental pulmonary embolism without acute cor pulmonale (2) Cough: Comment: better Code(s): R05.9 - Cough, unspecified Category: Medical Qualifiers: Cough type: chronic Qualified Code(s): R05.3 - Chronic cough (3) Bronchiectasis: Code(s): J47.9 - Bronchiectasis, uncomplicated Category: Medical Qualifiers: Bronchiectasis type: uncomplicated Qualified Code(s): J47.9 - Bronchiectasis, uncomplicated (4) Pulmonary nodule: Code(s): R91.1 - Solitary pulmonary nodule Category: Medical (5) Rib fractures: Code(s): S22.49XA - Multiple fractures of ribs, unspecified side, initial encounter for closed fracture Category: Medical Qualifiers: Encounter type: sequela Fracture type: closed Laterality: left Qualified Code(s): S22.42XS - Multiple fractures of ribs, left side, sequela (6) Pulmonary fibrosis: Code(s): J84.10 - Pulmonary fibrosis, unspecified Category: Medical Plan continue Eliquis 2.5mg BID ISS/deep breathing exercises acapella valve for CPT Nebulizer therapy as needed CT chest 4-6 months follow-up in 6-8 months Orders: Orders CT chest wo IV con 4 Months J84.10 - Pulmonary fibrosis, unspecified, R91.1 - Solitary pulmonary nodule Coding Level of Care Code Complex visit Add On G2211 Diagnoses Single subsegmental pulmonary embolism without acute cor pulmonale I26.93 Pulmonary embolism type: single subsegmental (without acute cor pulmonale) Chronic cough R05.3 Cough type: chronic Bronchiectasis without complication J47.9 Bronchiectasis type: uncomplicated Pulmonary nodule R91.1 Closed fracture of multiple ribs of left side, sequela S22.42XS Encounter type: sequela Fracture type: closed Laterality: left Pulmonary fibrosis J84.10 Time Spent (min) 17
--- OUTSIDE RECORDS SUMMARY | 2025-10-16 19:44 | XMS_ITS | Encounter Summary ---
Author Organization [facility] Address [address] [place] [phone] Phone Care Team Providers Care Account Executive Name Role Phone Callie Beverly MD Primary Care Provider [phone] Maria Elena Jeffery Primary Care Provider Justo García MD Unavailable [phone] Maria Elena Jeffery Unavailable [phone] Encounter Details Date Type Department Care Team (Late st Contact Info) Description 04/26/2018 Procedure Pass [facility] Endoscopy Admitting Dept Virtual Department [address] [place] [address] Social History Tobacco Use Types Packs/Day Years Used Date Smoking Tobacco: Never Smokeless Tobacco: Never Alcohol Use Standard Drinks/Week Comments No 0 (1 standard drink = 0.6 oz pur e alcohol) Sex and Gender Information Value Date Recorded Sex Assigned at Male 09/13/2023 1:07 AM EDT Legal Sex Male 12:59 PM EDT Gender Identity Male 09/13/2023 1:07 AM EDT Sexual Orientation Lesbian or Vasquez 09/13/2023 1: 07 AM EDT documented as of this encounter Plan of Treatment Upcoming Encounters Date Type Department Care Team (Late st Contact Info) Description 10/27/2025 3:45 PM EST Office Visit [facility] [address] [place] [address] Maria Elena Jeffery [address] [facility], [address] [place] [address] [email or web address] 10/29/2025 4:00 PM EST Office Visit [facility] [address] [place] [address] Justo García MD [address] [place] [phone] 12/09/2025 1:30 PM EST Office Visit [facility] [address] [place] [id number] Cassy Yadav CNP [address] [place] [id number] documented as of this encounter Visit Diagnoses Not on filedocumented in this encounter Care Teams Account Executive Relationship Specialty Start Date End Date Callie Beverly MD PCP - General Internal Medicine 04/26/18 11/08/23 Maria Elena Jeffery [address] [place] [address], [address] [place] [address] [email or web address] PCP - General Family Medicine 11/09/23 Justo García MD [address] [place] [id number] Primary Oncologist Medical Oncology 12/21/23 Maria Elena Jeffery [address] [place] [address], [address] [place] [address] [email or web address] Insurance Assigned Provider 02/15/25 documented as of this encounter Additional Source Comments The information contained in this document represents components of the legal health record. It is not the complete legal health record.[facility]
--- OUTSIDE RECORDS SUMMARY | 2025-10-16 19:44 | XMS_ITS | Clinical Summary ---
Author Organization [facility] Address [address] [place] [address] Care Team Providers Care Suede Cleaner Name Role Phone Unavailable Primary Care Provider Unavailabl e Allergies Active Allergy Reactions Criticality Noted Date [...] Peripheral neuropathy 08/11/2019 Follicular lymphoma grade 3a (CMS/HCC V24, CMS/H CC V28) 08/08/2019 Immunizations Immunization Administration Dates Next Due Influenza Quadravalent, 0.5m l (Fluzone High-dose) 65yo and older 08/11/2022 Influenza trivalent, 0.5mL ( Fluzone High-dose) 65yo and older 08/25/2019 Medical History Medical History Date Comments Skin cancer DX:Skin cancer;C OMMENT:basal cell carcinoma Colon cancer ([facility] V24, [facility] V28) 08/20/2014 DX:Colon cancer (HCC);COMMEN T:right hemicolectomy Diffuse large B cell lymphom a ([facility] V24, [facility] V28) DX:Diffuse large B cell lym phoma (HCC) Prostate cancer ([facility] V24 , [facility] V28) DX:Prostate cancer (HCC) Family History Medical History Relation Name Comments No Known Problems Father No Known Problems Mother Relation Name Status Comments Father Mother Social History Tobacco Use Types Packs/Day Years Used Date Smoking Tobacco: Former Cigarettes 0 Q uit: 11/12/1999 Smokeless Tobacco: Never Alcohol [...] 1969 Abdominal Aortic Aneurysm (AAA) Screen 10/20/2022 Falls Risk Assessment 10/20/2022 Social Influencers of Health Screening 10/20/2022 RSV Immunization Adult Patients (1 - 1-dose 75+ series) 2023 Depression Screening 11/12/2024 Medicare Annual Wellness Visit 04/08/2025 04/08/2024 COVID-19 Vaccine ( season) 2025 09/02/2024, 11/09/2023, 08/24/2021, Additional history exists Cholesterol Screening (Lipid Panel) 07/13/2025 07/13/2020, 07/13/2020 Influenza Vaccine (#1) 2025 , 07/30/2023, 08/11/2022, Additional history exists Hepatitis C Screening Completed 08/18/2019 HIB Vaccines Aged Out No longer eligi [...] age to complete this topic Meningococcal B Vaccine Aged Out No l onger eligible based on patient's age to complete this topic RSV Immunization Patients Under 20 months Aged Out No longer eligible based on patient's age to complete this topic Varicella Vaccines Aged Out No longer eligible based on patient's age to complete this topic Procedures Procedure Name Priority Date/Time Associated Diagnosis Comments LIPID PANEL Routine 07/13/2020 HEPATITIS C SCREENING Routine 08/18/2019 from Last 3 Months or Most Recently Relevant to Health Maintenance Results * (ABNORMAL) Lipid panel (07/13/2020) Triglycerides 174(A) <=150 mg/dL Cholesterol 237(A) 0 - 200 mg/dL HDL 60 32 - 70 mg/dL LDL Cholesterol 142(A) 50 - 130 mg/dL Blood Venous blood specimen / Unknown Historical Provider LAB BLOOD ORDERABLES [place] Result * Hepatitis C Screening (08/18/2019) Hepatitis C Screening abstracted Historical Provider MD HEALTH MAINTENANCE Final Result from Last 3 Months or Most Recently Relevant to Health Maintenance
--- OUTSIDE RECORDS SUMMARY | 2025-10-16 19:44 | XMS_ITS | Clinical Summary ---
Author Organization [employer] [facility] Prior to 04/11/25 Address [address] [place] [address] Care Team Providers Care Vehicle Operator Name Role Phone Que Garcia MD Primary [...] 102 06/15/2023 1:15 PM EDT Temperature 36.5 C (97.7 F) 06/15/2023 1:15 PM EDT Respiratory Rate 18 06/15/2023 1:15 PM EDT [...] Risk Assessment 2013 COVID-19 Vaccine ( season) 2025 02/10/2023, 08/25/2021, 08/24/2021, Additional history exists Influenza Vaccine (#1) 2025 3, 08/11/2022, 08/12/2021, Additional history exists DTap [...] Advance Directives For more information, please contact: [phone] Latest Code Status on File Code Status Date Activated Date Inactivated Comments Full Code 02/11/2022 11:24 PM 02/12/2022 11:26 PM This code status was ascertained in the following way: patient Care Teams Vehicle Operator Relationship Specialty Start Date End Date Que Garcia MD PCP - General Family Medicine 03/16/22
--- OUTSIDE RECORDS SUMMARY | 2025-10-16 19:44 | XMS_ITS | Clinical Summary ---
Author Organization [facility] Address [address] [place] [id number] Phone Care Team Providers Care Anode Crew Supervisor Name Role Phone Maria Elena Jeffery Primary Care Provider Justo García MD Unavailable [phone] Maria Elena Jeffery Unavailable [phone] Allergies Active Allergy Reactions Criticality Noted Date Comments Covid-19 Vacc,Mrna(Pfizer)(Pf) Bronchospasm,Cough,F atigue Low 11/09/2023 Nitrate Analogues Other (See Comments) 08/11/20 19 flushing Ph Test 08/11/2019 Other Reaction(s): Other (See Comments) flushing Sodium Nitrite-Sod Thiosulfate Other (See Comments) 04/18/2018 Artificial Sodium Nitrite causes Facial flushing Medications ascorbic acid, vitamin C, (VITAMIN C) 500 MG tablet Take 500 mg by mouth 2 (two) times a day. Active melatonin 1 mg Subl Take 1 tablet by mouth nightly at bedtime. Active ASHWAGANDHA EXTRACT ORAL Take 1 tablet by mouth daily. Active tadalafiL (CIALIS) 5 MG tablet Take 1 tablet (5 mg total) by mouth every morning. 90 tablet 3 11/07/2024 Active apixaban (ELIQUIS) 2.5 mg Take 2.5 mg by mouth 2 (two) times a day. 01/16/2025 Active BEE POLLEN ORAL Take 1 tablet by mouth daily. Active cholecalciferol (VITAMIN D3) 25 MCG (1,000 unit) tablet Take 1,000 Units by mouth daily. Active Active Problems Patient Care Coordination No te Formatting of this note migh t be different from the original. Height 168 cm taken by RB on 09/13/2023 Problem Noted Date Diagnosed Date Non-recurrent unilateral ing uinal hernia without obstruction or gangrene 07/07/2025 Assessment & Plan (07/07/2025 11:12 AM EDT): Newly diagnosed right inguinal hernia, likely due to straining from fecal impaction. Symptoms include discomfort without bowel strangulation. Surgery not urgent unless significant pain or strangulation occurs. - Send referral to [facility] for consultation. - Advise monitoring for signs of bowel strangulation, such as severe pain. - Discuss with general surgeon the timing of surgery in relation to upcoming colonoscopy. Prostate cancer 07/07/2025 Assessment & Plan (07/07/2025 11:12 AM EDT): Chronic elevated PSA at 11.6. He is resistant to further biopsies and prefers urologist consultation over radiation. - Send referral to Kristopher Gordon, urologist, for consultation per patient request. History of colon cancer 04/13/2025 Overview (04/13/2025): 2014 History of basal cell carcinoma 04/13/2025 At risk for heart disease 09/29/2024 Assessment & Plan (09/29/2024 4:32 PM EST): Recent lipid panel was quite elevated, moderately severe coronary artery calcifications seen on recent CT. ASCVD score is 21%. We discussed my recommendation that he start a statin. Patient is not interested at this time. Would like to work on changing his diet. We will follow up with repeat lipid panel at his physical. Acute upper respiratory infection 09/29/2024 Assessment & Plan (09/29/2024 5:41 PM EST): Patient does seem to have had a recent URI though he feels that symptoms are now more reflective of allergies. I did encourage him to decrease the amount of cough syrup that he is using into instead up his usage of [place] pot, and consider trialing Claritin. 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 Encounter for Medicare annual wellness exam 03/13 Assessment & Plan (04/13/2025 5:28 PM EDT): This is a 75 y.o. male who presents for a complete physical exam. Past medical history, surgical history, social history, family history and allergies reviewed and document in chart. -Blood pressure taken and reviewed. -General health screening appropriate for age reviewed -General nutrition recommendations reviewed: 5 servings of fruits and vegetables, adequate protein. -Exercise recommendations reviewed: 150 minutes of cardiovascular exercise weekly. At least two strength training sessions weekly for muscle mass and bone health. -Colon cancer screening discussed: Last colonoscopy: 2017 Result: polyps. 3 year return. History of colon cancer. Due now. Would encourage him to get one now. Referral placed. -Smoking cessation: NA -Lung Cancer Screening: NA -Abdominal Aortic Aneurysm: NA -Osteoporosis screening discussed: NA -Prostate cancer screening: Last PSA: March 2025 Result: Elevated. Any abnormal hx: history of prostate cancer. Sees oncology. Reports he is willing to see urology. -Prediabetes and Type 2 Diabetes Screening: Negative, 5.4%. -Hyperlipidemia screening: Elevated LDL. Patient declines statin. -STI screening: Declines -One lifetime HIV and Hep C test: Negative -IPV screen: NA -PHQ2: 0, GAD7: 0 -ADLS: No limitations -Immunizations reviewed: Due for tetanus, zoster, PCV. Patient believes he is up to date from [place]. -Labs as ordered with dentist. -Living will/MOLST/HCP: Paperwork provided. HCP is unsure-possibly roommate Nneka. -Annual physical exam recommended Assessment & Plan (04/08/2024 5:06 PM EDT): This is a 74 y.o. male who presents for a complete physical exam. Past medical history, surgical history, social history, family history and allergies reviewed and document in chart. -Blood pressure taken, no signs of hypertension. -General health screening appropriate for age reviewed -General nutrition recommendations reviewed: 5 servings of fruits and vegetables, adequate protein. -Exercise recommendations reviewed: 150 minutes of cardiovascular exercise weekly. At least two strength training sessions weekly for muscle mass and bone health. -Colon cancer screening discussed: Last colonoscopy: 2017 Result: polyps. 3 year return. Has been having multiple imaging studies for his follicular lymphoma. -Smoking cessation: NA -Lung Cancer Screening: NA -Abdominal Aortic Aneurysm: NA -Osteoporosis screening discussed: NA -Prostate cancer screening: Last PSA: March 2024 Result: elevated. Any abnormal hx: history of colon cancer. -Prediabetes and Type 2 Diabetes Screening: Negative -Hyperlipidemia screening for people 35 - 70 with BMI >25: Last was in 2019. Will get updated labs. -STI screening: Declines -One lifetime HIV and Hep C test: Completed -IPV screen: NA -PHQ2: 0 -Immunizations reviewed: Per our records, patient is due for tetanus, zoster, PCV. Due for COVID and will get. Patient believes he is up to date. -Labs as ordered -Regular vision and dental exams recommended: Not UTD with vision. UTD with dentist. -Living will/MOLST/HCP: Paperwork provided. -Annual physical exam recommended Mucus plug in respiratory tract 11/09/2023 Assessment & Plan (11/09/2023 1:55 PM EST): To R lung. Followed by pulmonology at [facility]. Discussion of bronchoscopy. -Continue follow up with pulmonology. History of pulmonary embolism 11/09/2023 Assessment & Plan (11/09/2023 1:46 PM EST): In 2021 hospitalized for a confirmed pulmonary embolism/infarction to his R lung after getting his third covid vaccine. On f/u CT scans was resolved. -Continue Eliquis 5mg BID. Elevated PSA 11/09/2023 Assessment & Plan (11/09/2023 1:38 PM EST): On recent blood work. Has had elevated levels in the past and had a biopsy. Result was watchful waiting . Reports the biopsy was an experience he never wants to repeat. Patient is not interested in pursing any further diagnostics or treatment unless his PSA goes above 10. Benign prostatic hyperplasia without lower urinary tract symptoms 11/09/2023 Assessment & Plan (11/09/2023 1:47 PM EST): Stable. -Well controlled with tadalafil. Peripheral neuropathy 08/11/2019 Assessment & Plan (11/09/2023 1:59 PM EST): To his feet s/p chemotherapy. Stable. Follicular lymphoma grade 3a 08/08/2019 Assessment & Plan (11/09/2023 1:33 PM EST): Diagnosed with follicular grade 3B non-Hodgkin's lymphoma in 2013. He was treated with 6 cycles of R-CHOP, followed by 17 doses of maintenance rituximab. Since 2017, he has undergone surveillance, with no additional therapy and no signs of disease progression. Has established care with [facility]. Resolved Problems Problem Noted Date Diagnosed Date Resolved Date Acute pain of right knee 09/29/202412/2024 Assessment & Plan (09/29/2024 5:41 PM EST): Benign knee exam. Patient will prefer to hold off on any interventions at this time. He will start retaking his glucosamine. If this does not help with the knee pain, he will let me know and I will refer him to physical therapy as recommended. Establishing care with mariana spence, encounter for 11/09/2023 09/29/2024 Overview (11/09/2023): This is a 73 y.o. male who presents to establish care. -Past medical history, surgical history, social history, family history and allergies reviewed and document in chart. -I spent a total of 45 minutes on care for this patient on the date of the encounter. This includes [id number] time during the visit as well as non [id number] time spent on chart review, documentation, and care coordination. -Will follow up for annual physical. Other male erectile dysfunction 11/09/2023 11/09/2023 Assessment & Plan (11/09/2023 8:12 AM EST): Uses tadalafil 5mg as needed. Diarrhea 02/11/2022 11/09/2023 Anxiety 08/11/2019 11/09/2023 Anxiety and depression 08/11/201904/08 Assessment & Plan (11/09/2023 1:58 PM EST): Reports after having cancer suicide is always an option . Is isolated living in [place]. Reports he takes ashwagandha with good relief of symptoms. Does not want any western medicine for depression. Not seeing a therapist. GERD (gastroesophageal reflux disease) 08/11/2019 11/09/2023 Lipoma 08/11/2019 11/09/2023 Immunizations Immunization Administration Dates Next Due COVID-19 (Pre-09/03) Pfizer Vaccine, mRNA, PF 08/25/2021,08/24/2021,08/24/2021,2020,02/22/2021,02/01/2021,02/01/2021,0 02/01/2021 COVID-19 Novavax Vaccine 12+ 02/10/2023 Influenza High-Dose Quadriva lent Preservative Free IM 07/30/2023,08/11/2022,08/04/2022,2020,07/10/2020 Influenza High-Dose Trivalen t Preservative Free IM 08/25/2019,11/17/2018 Influenza Trivalent Adjuvant ed Preservative free IM 10/01/2024 RSV Vaccine (bivalent) 07/30/2023 Zoster recombinant 11/20/2019 Social History Tobacco Use Types Packs/Day Years Used Date Smoking Tobacco: Never Smokeless Tobacco: Never Tobacco Cessation:Counseling Given: Not Answered Alcohol Use Standard Drinks/Week Comments No 0 (1 standard drink = 0.6 oz pur e alcohol) Child or Family Care Answer Date Record ed Do you have problems with on e of the following making it difficult for you to work, study, or receive health care? No 11/09/2023 Education Answer Date Recorded Are you interested in more education? Not on katarina e 03/09/2023 Are you concerned about learning? Not on file 03/09/2023 No 03/09/2023 No 03/09/2023 Food Answer Date Recorded Within the past 6 months we worried whether our food would run out before we got money to buy more. Never True 11/09/2023 Within the past 6 months the food we bought just didn't last and we didn't have enough money to get more. Never True Residential Stability Answer Date Recor ded What is your housing situation today? I have teodora sing 11/09/2023 How many times have you move d in the past 12 months? Zero (I did not move) 11/09/2023 Paying for Meds Answer Date Recorded Do you have trouble paying for medicines? No 11/09/2023 Paying Utility Bills Answer Date Record ed Do you have trouble paying your heating or elect ricity bill? No 11/09/2023 Transportation Answer Date Recorded Has the lack of transportati on kept you from medical appointments or from getting medications? No 11/09/2023 Digital Access Answer Date Recorded No 11/09/2023 Yes 11/09/2023 Do you have reliable internet access at home? Ye s 11/09/2023 Do you have a device (e.g., phone, tablet, computer) with a working camera? Yes 11/09/2023 Intimate Partner Violence Answer Date R ecorded Denied Basic Needs Not on file 04/12/2025 In the past 12 months have y ou been in a relationship with a person who hurts, threatens, or tries to control you? No 04/12/2025 Worried food would run out Not on file 04/12 In the past 12 months have y ou been in a relationship with a person who hurts, threatens, or tries to control you? No 04/12/2025 Sex and Gender Information Value Date Recorded Sex Assigned at Male 09/13/2023 1:07 AM EDT Legal Sex Male 12:59 PM EDT Gender Identity Male 09/13/2023 1:07 AM EDT Sexual Orientation Lesbian or Vasquez 09/13/2023 1: 07 AM EDT Last Filed Vital Signs Vital Sign Reading Time Taken Comments Blood Pressure 141/83 07/07/2025 8:09 AM EDT Pulse 95 07/07/2025 8:09 AM EDT Temperature 36.4 C (97.6 F) 07/07/2025 8:09 AM EDT Respiratory Rate 20 07/07/2025 8:09 AM EDT Oxygen Saturation 100% 07/07/2025 8:09 AM EDT Inhaled Oxygen Concentration - - Weight 69.3 kg (152 lb 12.8 oz) 07/07/2025 8:09 AM EDT Height 164.7 cm (5' 4.84 ) 04/14/2025 4:21 PM ED T Body Mass Index 25.55 04/14/2025 4:21 PM EDT Plan of Treatment Upcoming Encounters Date Type Department Care Team (Late st Contact Info) Description 10/27/2025 3:45 PM EST Office Visit [address] [address] Maria Elena Jeffery [address] [place] [address], [address] [place] [address] [email or web address] 10/29/2025 4:00 PM EST Office Visit [facility] [address] [place] [address] Justo García MD [address] [place] [phone] 12/09/2025 1:30 PM EST Office Visit [facility] [address] [place] [phone] Cassy Yadav CNP [address] [place] [id number] Health Maintenance Due Date Last Done Comments Adult Td,Tdap Booster 1950 PNEUMOCOCCAL VACCINES (50+ years) (1 of 2 - PCV) 1967 ZOSTER VACCINES (2 of 2) 01/15/2020 11/20/2019 INFLUENZA VACCINE (#1) 2025 , 07/30/2023, 08/11/2022, Additional history exists CREATININE LEVEL 04/08/2026 04/08/2025, , 04/02/2024, Additional history exists DEPRESSION SCREENING 04/12/2026 04/12/2025 LIPID PANEL 04/08/2030 04/08/2025, 09/12, 07/13/2020 HEPATITIS C SCREENING Completed 08/18/2019 RSV VACCINE Completed 07/30/2023 SMOKING STATUS SCREENING (Once After 26 Yrs) Completed 04/14/2025 HEPATITIS A VACCINES Aged Out No long er eligible based on patient's age to complete this topic HIB VACCINES Aged Out No longer eligi ble based on patient's age to complete this topic MENINGOCOCCAL VACCINES (ACWY) Aged Out No longer eligible based on patient's age to complete this topic MENINGOCOCCAL VACCINES (B) Aged Out N o longer eligible based on patient's age to complete this topic Medical Devices Not on file Procedures Procedure Name Priority Date/Time Associated Diagnosis Comments LIPID PANEL Routine 04/08/2025 3:48 PM EDT At risk for heart disease COMPREHENSIVE METABOLIC PANEL (CMP) Routine 04/08/2025 3:48 PM EDT At risk for heart disease from Last 3 Months or Most Recently Relevant to Health Maintenance Results * (ABNORMAL) Comprehensive metabolic panel (04/08/2025 3:48 PM EDT) SODIUM 137 133 - 146 mmol/L [facility] POTASSIUM 4.5 3.3 - 5.1 mmol/L [facility] CHLORIDE 101 96 - 108 mmol/L [facility] CO2 24 21 - 35 mmol/L [facility] BUN 21(H) 6 - 19 mg/dL [facility] CREATININE 1.10 0.5 - 1.5 mg/dL [facility] GLUCOSE 95 70 - 99 mg/dL [facility] ALBUMIN 4.5 3.9 - 4.8 g/dL [facility] TOTAL PROTEIN 7.0 6.5 - 8.0 g/dL [facility] CALCIUM 9.6 8.4 - 10.3 mg/dL [facility] ALKALINE PHOSPHATASE 79 39 - 117 U/L [facility] TOTAL BILIRUBIN 1.5(H) 0.0 - 1.2 mg/dL [facility] AST 26 0 - 37 U/L [facility] ALT 24 0 - 40 U/L [facility] GLOBULIN 2.5 1 - 4.8 g/dL [facility] EGFR 69 >59 mL/min/1.7 3m2 [facility] Comment:Estimated glomerular filtration rate calculated using the CKD-EPI refit equation. ANION GAP 17 10 - 20 mmol/L [facility] Blood 04/08/2025 3:48 PM EDT 04/08/2025 3:50 PM EDT [facility] ORDERAB[facility] Fi nal Result [address] [address] * (ABNORMAL) Lipid panel (04/08/2025 3:48 PM EDT) HDL 66 mg/dL [facility] Comment: Interpretation <40 mg/dL: Low HDL cholesterol (major risk factor for CHD) Greater than or equal to 60 mg/dL: High HDL cholesterol ( negative risk factor for CHD) HDL - cholesterol is affected by a number of factors, e.g. smoking, excerise, hormones, sex and age. CHOLESTEROL 236 0 - 240 mg/dL [facility] TRIGLYCERIDES 117 30 - 160 mg/dL [facility] LDL 147(H) 50 - 129 mg/dL [facility] Comment: LDL levels in terms of risk for coronary heart disease: <100 mg/dL: Optimal 100-129 mg/dL: Near or above optimal 130-159 mg/dL: Borderline high 160-189 mg/dL: High >190 mg/dL: Very High CARDIAC RISK RATIO 3.6 3.4 - 5.0 [facility] Blood 04/08/2025 3:48 PM EDT 04/08/2025 3:50 PM EDT Maria Elena NascimentoAlmena LAB BLOOD BKR ORDERABLES Fi nal Result [facility] [address] [place] [address] from Last 3 Months or Most Recently Relevant to Health Maintenance Insurance MEDICARE PART A & B [facility] MEDICARE SUPPLEMENT MEDICARE PART A & B [facility] MEDICARE SUPPLEMENT MEDICARE PART A & B [facility] MEDICARE SUPPLEMENT MEDICARE PART A & B [facility] MEDICARE SUPPLEMENT [employer] Address: [facility] [address] [phone] MEDICARE PART A & B [facility] MEDICARE SUPPLEMENT MEDICARE PART A & B [facility] MEDICARE SUPPLEMENT MEDICARE PART A & B [facility] MEDICARE SUPPLEMENT [place] [place] [phone] MEDICARE PART A & B [facility] MEDICARE SUPPLEMENT MEDICARE PART A & B [facility] MEDICARE SUPPLEMENT Care Teams Anode Crew Supervisor Relationship Specialty Start Date End Date Maria Elena Jeffery [address] [place] [address], [address] [address] [email or web address] PCP - General Family Medicine 11/09/23 Justo García MD [address] [place] [id number] Primary Oncologist Medical Oncology 12/21/23 Maria Elena Jeffery [address] [place] [address], [address] [place] [address] [email or web address] Insurance Assigned Provider 02/15/25 Additional Source Comments The information contained in this document represents components of the legal health record. It is not the complete legal health record.[facility]
== END 2025-10-16 16:22 | disposition home or self-care (01) ==
LOC: HO.HPS 15:55
PROVIDERS: PCP Student in an Organized Health Care Education/Training Program; Visit Provider Hospitalist
DX: I26.93 Single subsegmental thrombotic pulmonary embolism without acute cor pulmonale (principal); R05.3 Chronic cough; J47.9 Bronchiectasis, uncomplicated; R91.1 Solitary pulmonary nodule; S22.42XS Multiple fractures of ribs, left side, sequela; J84.10 Pulmonary fibrosis, unspecified
CPT/HCPCS: 99213; G2211

== ENCOUNTER → 2025-10-16 15:55 | Outpatient (BNVA) | payer MEDICARE, SELFPAY | PROVIDERS: PCP Student in an Organized Health Care Education/Training Program; Visit Provider Hospitalist | DX: I26.93 Single subsegmental thrombotic pulmonary embolism without acute cor pulmonale (principal); R05.3 Chronic cough; J47.9 Bronchiectasis, uncomplicated; R91.1 Solitary pulmonary nodule; S22.42XS Multiple fractures of ribs, left side, sequela; J84.10 Pulmonary fibrosis, unspecified | CPT/HCPCS: 99212 ==